=== PATIENT | female | born 1960 | race Caucasian/White ===

== ENCOUNTER 2017-05-09 19:02 | Emergency (ER) | payer MEDICARE, MEDICAID | END 2017-05-09 20:00 | disposition left against medical advice (07) | LOC: UCEAST 19:02 | DX: R53.1 Weakness (principal); Z53.21 Procedure and treatment not carried out due to patient leaving prior to being seen by health care provider ==

== ENCOUNTER 2017-05-12 08:46 | Emergency (ER) | payer MEDICARE, MEDICAID ==
--- NOTE | 2017-05-12 09:10 | UC ---
Lower Extremity/Ankle HPI - HPI Summary HPI Summary: Pt is nonverbal, normally fully independent with ambulation. 3 nights ago there was a fire drill and pt was seen twisting R foot on a ledge in the sidewalk with some twisting/scraping. Has been walking with a slight limp, today does not want to bear weight at all. Seems more agitated than normal, biting her hand more than normal (which is a sign of pain). - History of Current Complaint Chief Complaint: UCLowerExtremity Stated Complaint: FOOT INJURY Time Seen by Provider: 05/12/17 08:53 Hx Obtained From: Family/Computer Technology Instructor ?: No Onset/Duration: Sudden Onset Severity Initially: Mild Severity Currently: Moderate Aggravating Factor(s): Standing, Ambulation Alleviating Factor(s): Rest Able to Bear Weight: Yes - Allergies/Home Medications Allergies/Adverse Reactions: Allergies Allergy/AdvReac Type Severity Reaction Status Date / Time Fexofenadine [From Gina] Allergy Unknown Unknown Verified 11/14/12 10:36 Reaction Details Phenylalanine Allergy Unknown Unknown Verified 11/14/12 10:36 Reaction Details Pseudoephedrine Allergy Unknown Unknown Verified 11/14/12 10:36 [From Actifed] Reaction Details Triprolidine [From Actifed] Allergy Unknown Unknown Verified 11/14/12 10:36 Reaction Details laundry detergent Allergy Unknown Uncoded 11/14/12 10:36 Reaction Details PMH/Surg Hx/FS Hx/Imm Hx - Additional Past Medical History Additional PMH: PKU, profound MR, self-injurious behavior - Surgical History Surgical History: Yes Surgery Procedure, Year, and Place: Vaginal D&C 03/07/2012 - Family History Known Family History: Positive: Unknown - Social History Occupation: Disabled Lives: Assisted Living Alcohol Use: None Substance Use Type: None Smoking Status (MU): Never Smoked Tobacco - Immunization History Most Recent Tetanus Shot: 12/14/08 Review of Systems Constitutional: Negative Skin: Negative Eyes: Negative ENT: Negative Respiratory: Negative Cardiovascular: Negative Gastrointestinal: Negative Genitourinary: Negative Motor: Negative Neurovascular: Negative Musculoskeletal: Arthralgia - R foot Neurological: Negative Psychological: Negative All Other Systems Reviewed And Are Negative: Yes Physical Exam Triage Information Reviewed: Yes Appearance: Well-Nourished Vital Signs: Initial Vital Signs Temp 98 F 05/12/17 08:49 Pulse 77 07/23/17 08:49 Resp 22 05/12/17 08:49 Pulse Ox 100 05/12/17 08:49 Vital Signs Reviewed: Yes Eyes: Positive: Conjunctiva Clear ENT: Positive: Other: - bilat cerumen impaction. Negative: Nasal congestion, Tonsillar swelling Dental Exam: Normal Neck exam: Normal Neck: Positive: Supple, Nontender, No Lymphadenopathy Respiratory Exam: Normal Respiratory: Positive: Chest non-tender, Lungs clear, Normal breath sounds, No respiratory distress, No accessory muscle use Cardiovascular Exam: Normal Cardiovascular: Positive: RRR, No Murmur Musculoskeletal Exam: Other - minimal bruising, abrasion near R distal first MT Musculoskeletal: Positive: ROM Intact Neurological Exam: Normal Neurological: Positive: Alert Psychological Exam: Normal Lower Extremity Course/Dx - Differential Dx/Diagnosis Provider Diagnoses: R foot contusion Discharge - Discharge Plan Condition: Stable Disposition: HOME Patient Education Materials: Foot Sprain (ED), Contusion in Adults (ED) Referrals: Giuliana Mera PA [Primary Care Provider] - Additional Instructions: Radha'maria t minor injury did not result in any broken bones. Most sprains, strains , and contusions simply heal with time. She can continue to bear weight as tolerated, and I expect her to be back to normal in a week or so. If she has persistent or worsening pain, please see her primary care provider.
--- NOTE | 2017-05-12 09:37 | RAD ---
INDICATION: Right foot injury. TECHNIQUE: 3 views of the right foot were obtained. FINDINGS: There appears to be a small laceration along the medial aspect of the great toe at the level of the interphalangeal joint. No fracture or radiopaque foreign body is seen. Joint spaces appear maintained. IMPRESSION: SOFT TISSUE INJURY, NO FRACTURE IS SEEN.
== END 2017-05-12 09:49 | disposition home or self-care (01) ==
LOC: UCEAST 08:46
DX: S90.31XA Contusion of right foot, initial encounter (principal); X50.1XXA Overexertion from prolonged static or awkward postures, initial encounter; Z88.8 Allergy status to other drugs, medicaments and biological substances; H61.23 Impacted cerumen, bilateral
CPT/HCPCS: 99211; G0463

== ENCOUNTER 2020-01-13 06:42 | Day surgery (SDC) | payer MEDICARE, MEDICAID ==
[~2020-01-13 06:42] MED LIST: Buffered Lidocaine 1% SYRIN* 1 ML/SYRINGE INTRADERM ONE; Lactated Ringers 1000 ML Bag* 1,000 ML IV SCH
[2020-01-13] MEDS ORDERED: Buffered Lidocaine 1% SYRIN* 1 ML/SYRINGE INTRADERM ONE (07:01)
[2020-01-13] MEDS ORDERED: Midazolam* 1 MG/ML 2 ML VIAL (2 MG) ONE (08:03)
[2020-01-13] MEDS ORDERED: Propofol* 10 MG/ML 20 ML BTL ONE (08:04)
[2020-01-13] MEDS ORDERED: KETAMINE HCL* 50 MG/ML 10 ML VIAL ONE (08:18)
[2020-01-13] MEDS ORDERED: Ondansetron INJ* 2 MG/ML VIAL ONE (08:36)
[2020-01-13] MEDS ORDERED: Metoclopramide IV* 5 MG/ML 2 ML VIAL ONE (08:36)
[2020-01-13] MEDS ORDERED: Glycopyrrolate IV* 0.2 MG/ML 1 ML VIAL ONE (08:41)
[2020-01-13] MEDS ORDERED: Naloxone* 0.4 MG/ML 1 ML VIAL IV PRN (09:03)
[2020-01-13 10:25] VITALS: BP 113/65
--- NOTE | 2020-01-13 15:05 | PRO ---
CC: Dr. Kale Mckeon* DATE OF PROCEDURE: 01/13/2020. PROCEDURE PERFORMED: EGD with biopsy. REFERRING PHYSICIAN: Dr. Kale Mckeon. INDICATION: Patient with vomiting and weight loss. The patient has a severe intellectual disability as well as behavioral issues. She is nonverbal. MEDICATIONS GIVEN: By Anesthesia. DESCRIPTION OF PROCEDURE: Full disclosure of risks were reviewed with the patient as detailed on the consent form. The patient was placed in the left lateral decubitus position and monitored with continuous pulse oximetry, capnography, interval blood pressure monitoring, and direct observation. A bite block was placed between the patient's teeth. An adult gastroscope was then inserted into the patient's mouth and advanced down the esophagus, into the stomach and into the distal duodenum. Findings and interventions are described below. FINDINGS: Esophagus was a tubular structure with tortuosity in the distal portion. There almost appeared to be an acute turn in the distal esophagus directly above the GE junction. The scope was able to easily advanced through this area so there was no stricture present. At the area of the GE junction, there was food material seen. There also appeared to be several small erosions or ulcers in this location. The scope was advanced through the GE junction at 33 cm into a large hiatal hernia. This hiatal hernia contained a large bezoar. I was able to advance through the hiatal hernia into the intra-abdominal portion of the abdomen. The top of the gastric folds measured at 39 cm. In the intra-abdominal portion of the stomach, there were decreased rugae and diffuse mild erythema. There was a cobblestone edematous appearance to the mucosa. No ulcers. Biopsies obtained from the antrum for CLOtest. Biopsy also obtained from the antrum and body for histologic evaluation. The scope was then advanced into the duodenum to at least the third portion. Duodenal mucosa was normal in appearance. Biopsies were obtained. The scope was then withdrawn back to the hiatal hernia to further evaluate the gastric bezoar. I was able to move the scope underneath the gastric bezoar which confirms that it was a very large conglomeration of debris in a concretion. I was unable to advance the bezoar forward using the tip of the scope. I used a snare over a period of five minutes to attempt to break the bezoar down. The snare was unable to cut through most passes. The material in the bezoar seemed very stiff. Appearance is suggestive of perhaps a mixture of hair and cellulose, possible foreign object like a sponge, although it was not clear in appearance what exactly it contained. The scope was then withdrawn from the patient. The patient tolerated the procedure well and was recovered in the GI recovery area IMPRESSION: 1. Complete upper endoscopy to the distal duodenum. 2. Inflammation in the form of erosion verses small ulcers in the lower esophagus. 3. Large hiatal hernia containing a large gastric bezoar. Unable to disrupt this bezoar with endoscopic techniques today. Possible that this contains hair. 4. Mild to moderate gastric erythema. FOLLOW-UP: 1. Continue PPI twice daily. 2. Recommend attempt at chemical dissolution with coca-cola 3 liters in 12 hours. Would also recommend Reglan 10 mg t.i.d. at bedtime as well as Viokase t.i.d. for one week. The patient's care team will then contact the office with an update and clinical symptoms. If the patient's symptoms are not fully resolved after one week, then we will discuss repeating an endoscopy to see if the bezoar is any smaller and can be able to be managed endoscopically. Another alternatively unfortunately would be surgical resection. Thank you very much for this referral. [id number]/[facility] #: [id number] ROBERTO
== END 2020-01-13 10:00 | disposition home or self-care (01) ==
LOC: OR 06:42
PROVIDERS: ATTEND Internal Medicine Gastroenterology
DX: R11.2 Nausea with vomiting, unspecified (principal); R63.4 Abnormal weight loss; K29.50 Unspecified chronic gastritis without bleeding; K44.9 Diaphragmatic hernia without obstruction or gangrene; T18.198A Other foreign object in esophagus causing other injury, initial encounter; K20.9 Esophagitis, unspecified; F73 Profound intellectual disabilities
CPT/HCPCS: 87077; 88305; 88342; J2250; J2405; J2704; J2765

== ENCOUNTER 2020-02-26 10:45 | Inpatient (IN) ==
[2020-02-26] MEDS ORDERED: Ondansetron 4 mg VIAL 2 MG/ML 2 ml VIAL IV ONE (11:10)
[2020-02-26] MEDS ORDERED: NS 0.9% 1000 ml BAG 1,000 ML IV ONE (11:10)
[2020-02-26 11:47] LABS: ABS Lymphocytes 0.4 10^3/ul (1.0-4.8); ABS Monocytes 0.2 10^3/ul (0-0.8); Hematocrit 35 % (35-47); Hemoglobin 11.6 g/dL (12.0-16.0); Lymphocyte % 4.9 %; Mean Corpuscular HGB Conc 34 g/dL (31-36); Mean Corpuscular Hemoglobin 31 pg (27-31); Mean Corpuscular Volume 91 fL (80-97); Mean Platelet Volume 8.3 fL (7.4-10.4); Nucleated Red Blood Cells % 0.1; Platelet Count 400 10^3/uL (150-450); Red Blood Count 3.77 10^6 /uL (3.70-4.87); Red Cell Distribution Width 13 % (10-15); White Blood Count 9.1 10^3/uL (3.5-10.8)
[2020-02-26 11:55] LABS: Albumin 3.6 g/dL (3.2-5.2); BUN/Creatinine Ratio 20.6 (8-20); C Reactive Protein 204.7 mg/L (<8.01); Calcium 10.8 mg/dL (8.6-10.3); EGFR African American 46.4 (>60); EGFR Non-African American 38.3 (>60); Globulin 3.5 g/dL (2-4); Potassium 4.7 mmol/L (3.5-5.0); Total Bilirubin 0.8 mg/dL (0.2-1.0); Total Protein 7.1 g/dL (6.4-8.9)
[2020-02-26] MEDS ORDERED: LORazepam 2 mg VIAL 1 ml IV PUSH ONE ×2 (11:56→13:49)
[2020-02-26] MEDS ORDERED: Lorazepam PYXIS KEY PRN ×2 (11:56→13:49)
[2020-02-26] MEDS ORDERED: Piperacillin/Tazobac ADVAN(*) 3.375 GM in NS 0.9% 100 ml BAG 100 ML IVPB ONE ×2 (13:25→14:44)
[2020-02-26] MEDS ORDERED: Zosyn per Pharmacy NOTE FOLLOW UP SCH (15:00)
[2020-02-26] MEDS ORDERED: ZOSYN 3.375 GM Q8H per EXTENDED INFUSION IV SCH ×2 (19:30→22:00)
[2020-02-26] MEDS: D5NS 0.9% 1000 ml BAG 1,000 ML IV SCH (21:23)
[2020-02-26] MEDS ORDERED: ZOSYN 3.375 GM Q6H IV SCH (22:00)
[2020-02-26] MEDS: Diazepam INJ CARPUJECT 5 MG/ML IM PRN (22:42)
[2020-02-27] MEDS ORDERED: CLINDAMYCIN IM ONE (00:30)
[2020-02-27] MEDS ORDERED: cefTRIAXone VIAL 1,000 MG VIAL IM ONE (00:30)
[2020-02-27] MEDS: ZOSYN 3.375 GM Q8H per EXTENDED INFUSION IV SCH ×3 (01:06→15:36)
[2020-02-27] MEDS ORDERED: LORazepam 2 mg VIAL 1 ml ONE (01:14)
[2020-02-27] MEDS ORDERED: Lorazepam PYXIS KEY ONE (01:14)
[2020-02-27] MEDS ORDERED: Succinylcholine 200 mg VIAL 20 mg/ml 10 ml VIAL (200 mg) ONE ×2 (01:23→01:38)
[2020-02-27] MEDS ORDERED: Midazolam 10 mg/10 ml VIAL 1 mg/ml 10 ml VIAL (10 mg) ONE (01:38)
[2020-02-27] MEDS ORDERED: Etomidate 40 mg/20 ml (2 MG/ML) 20 ml VIAL (40 mg) ONE (01:38)
[2020-02-27] MEDS ORDERED: Propofol 10 mg/ml 100 ML BTL 100 ML ONE (01:40)
[2020-02-27] MEDS: Midazolam IV for DRIP 100 MG in NS 0.9% 100 ml BAG 80 ML IV SCH (02:46)
[2020-02-27] MEDS ORDERED: Propofol 10 mg/ml 100 ML BTL 100 ML IV SCH (03:00)
[2020-02-27 05:27] LABS: Urine Appearance Cloudy; Urine Bilirubin Negative (Negative); Urine Blood Negative (Negative); Urine Color Amber; Urine Glucose Negative (Negative); Urine Ketones 1+ (Negative); Urine Nitrite Negative (Negative); Urine Protein Negative (Negative); Urine Urobilinogen Negative (Negative)
[2020-02-27] MEDS ORDERED: LIDOCAINE ONE (05:35)
[2020-02-27 05:38] LABS: Hematocrit 27 % (35-47); Hemoglobin 9.2 g/dL (12.0-16.0); Mean Corpuscular HGB Conc 34 g/dL (31-36); Mean Corpuscular Hemoglobin 31 pg (27-31); Mean Corpuscular Volume 91 fL (80-97); Mean Platelet Volume 7.5 fL (7.4-10.4); Platelet Count 332 10^3/uL (150-450); Red Blood Count 2.94 10^6 /uL (3.70-4.87); Red Cell Distribution Width 13 % (10-15); White Blood Count 12.7 10^3/uL (3.5-10.8)
[2020-02-27 06:11] LABS: BUN/Creatinine Ratio 22.1 (8-20); Calcium 9.6 mg/dL (8.6-10.3); EGFR African American 44.9 (>60); EGFR Non-African American 37.1 (>60); Potassium 4.2 mmol/L (3.5-5.0)
[2020-02-27] MEDS ORDERED: NS 0.9% 1000 ml BAG 1,000 ML IV ONE (06:12)
[2020-02-27 06:21] LABS: ABS Lymphocytes 0.3 10^3/ul (1.0-4.8); ABS Monocytes 0.2 10^3/ul (0-0.8); Eosinophil % 0.1 %
[2020-02-27] MEDS: Heparin 5000 UNITS/ML VIAL(*) 1 ml vial SUBCUT SCH ×3 (06:22→22:04)
[2020-02-27] MEDS: fentaNYL 100 mcg/2 ml 50 MCG/ML VIAL IV SLOW PU ONE (06:22)
[2020-02-27] MEDS: Chlorhexidine MOUTHWASH 0.12% 15 ML UDC TOPICAL SCH ×5 (06:23→22:04)
[2020-02-27] MEDS ORDERED: NS 0.9% w/ 40 Meq KCL 1000 ML 1,000 ML IV SCH (07:00)
[2020-02-27] MEDS: Propofol 10 mg/ml 100 ML BTL 100 ML IV SCH ×2 (07:40→15:28)
[2020-02-27] MEDS: Pantoprazole VIAL 40 MG VIAL IV SCH (08:15)
[2020-02-27] MEDS: NS 0.9% w/ 40 Meq KCL 1000 ML 1,000 ML IV SCH ×3 (13:18→22:21)
[2020-02-28] MEDS: ZOSYN 3.375 GM Q8H per EXTENDED INFUSION IV SCH ×3 (01:23→16:29)
[2020-02-28] MEDS: Propofol 10 mg/ml 100 ML BTL 100 ML IV SCH ×2 (01:26→13:14)
[2020-02-28] MEDS: Chlorhexidine MOUTHWASH 0.12% 15 ML UDC TOPICAL SCH ×6 (02:02→21:36)
[2020-02-28] MEDS ORDERED: NS 0.9% 1000 ML/HR X 1 BAG (TOTAL 1000 ML) IV ONE (04:00)
[2020-02-28] MEDS ORDERED: fentaNYL 100 mcg/2 ml 50 MCG/ML VIAL ONE (04:49)
[2020-02-28] MEDS: Heparin 5000 UNITS/ML VIAL(*) 1 ml vial SUBCUT SCH ×3 (05:24→21:36)
[2020-02-28 05:30] LABS: ABS Eosinophils 0.2 10^3/ul (0-0.6); ABS Lymphocytes 0.3 10^3/ul (1.0-4.8); ABS Monocytes 0.1 10^3/ul (0-0.8); Eosinophil % 1.8 %; Hematocrit 23 % (35-47); Hemoglobin 7.5 g/dL (12.0-16.0); Lymphocyte % 3.1 %; Mean Corpuscular HGB Conc 33 g/dL (31-36); Mean Corpuscular Hemoglobin 31 pg (27-31); Mean Corpuscular Volume 94 fL (80-97); Mean Platelet Volume 7.5 fL (7.4-10.4); Platelet Count 293 10^3/uL (150-450); Red Blood Count 2.39 10^6 /uL (3.70-4.87); Red Cell Distribution Width 14 % (10-15); White Blood Count 10.7 10^3/uL (3.5-10.8)
[2020-02-28 05:49] LABS: BUN/Creatinine Ratio 20.7 (8-20); Calcium 8.3 mg/dL (8.6-10.3); EGFR African American 46.7 (>60); EGFR Non-African American 38.6 (>60)
[2020-02-28] MEDS: NS 0.9% w/ 40 Meq KCL 1000 ML 1,000 ML IV SCH (05:49)
[2020-02-28 05:55] LABS: Potassium 5.1 mmol/L (3.5-5.0)
[2020-02-28] MEDS ORDERED: Lactated Ringers 1000 ml BAG 1,000 ML IV SCH (07:00)
[2020-02-28] MEDS: Pantoprazole VIAL 40 MG VIAL IV SCH (07:20)
[2020-02-28] MEDS: Lactated Ringers 1000 ml BAG 1,000 ML IV SCH ×2 (08:08→15:44)
[2020-02-28 10:18] LABS: Hematocrit 22 % (35-47); Hemoglobin 7.4 g/dL (12.0-16.0)
[2020-02-28 13:14] LABS: Magnesium 1.9 mg/dL (1.9-2.7); Phosphorus 2.6 mg/dL (2.5-5.0)
[2020-02-28] MEDS: Midazolam IV for DRIP 100 MG in NS 0.9% 100 ml BAG 80 ML IV SCH (16:29)
[2020-02-29] MEDS ORDERED: Lactated Ringers 500 ml BAG 500 ML IV ONE
[2020-02-29] MEDS: Lactated Ringers 1000 ml BAG 1,000 ML IV SCH (00:20)
[2020-02-29] MEDS: ZOSYN 3.375 GM Q8H per EXTENDED INFUSION IV SCH ×3 (00:27→15:59)
[2020-02-29] MEDS: Chlorhexidine MOUTHWASH 0.12% 15 ML UDC TOPICAL SCH ×6 (01:55→21:39)
[2020-02-29 04:17] LABS: ABS Eosinophils 0.2 10^3/ul (0-0.6); ABS Lymphocytes 0.4 10^3/ul (1.0-4.8); ABS Monocytes 0.2 10^3/ul (0-0.8); Eosinophil % 2.4 %; Hematocrit 22 % (35-47); Hemoglobin 7.7 g/dL (12.0-16.0); Lymphocyte % 3.5 %; Mean Corpuscular HGB Conc 35 g/dL (31-36); Mean Corpuscular Hemoglobin 33 pg (27-31); Mean Corpuscular Volume 94 fL (80-97); Platelet Count 290 10^3/uL (150-450); Red Blood Count 2.37 10^6 /uL (3.70-4.87); Red Cell Distribution Width 14 % (10-15); White Blood Count 10.2 10^3/uL (3.5-10.8)
[2020-02-29 04:26] LABS: Activated Partial Thrombo Time 27.3 seconds (26.0-38.0); INR 1.19 (0.82-1.09)
[2020-02-29 04:34] LABS: BUN/Creatinine Ratio 21.2 (8-20); Calcium 8.7 mg/dL (8.6-10.3); EGFR African American 56.9 (>60); Magnesium 1.8 mg/dL (1.9-2.7); Phosphorus 3.1 mg/dL (2.5-5.0)
[2020-02-29] MEDS: Heparin 5000 UNITS/ML VIAL(*) 1 ml vial SUBCUT SCH ×3 (05:03→21:39)
[2020-02-29] MEDS: Propofol 10 mg/ml 100 ML BTL 100 ML IV SCH ×2 (05:03→17:02)
[2020-02-29] MEDS: Pantoprazole VIAL 40 MG VIAL IV SCH (07:10)
[2020-02-29] MEDS: Diazepam INJ CARPUJECT 5 MG/ML IM PRN (07:20)
[2020-02-29] MEDS ORDERED: Diazepam INJ CARPUJECT 5 MG/ML IM ONE (08:04)
[2020-02-29] MEDS ORDERED: Magnesium Sulfate 2 gm BAG 2 GM/50 ML BAG IVPB ONE (08:06)
[2020-02-29] MEDS: D5W 1/2 NS 1000 ml BAG 1,000 ML IV SCH ×2 (08:37→23:22)
[2020-02-29] MEDS ORDERED: Chlorhexidine MOUTHWASH 0.12% 15 ML UDC ONE (21:35)
[2020-03-01] MEDS: ZOSYN 3.375 GM Q8H per EXTENDED INFUSION IV SCH ×3 (00:55→17:08)
[2020-03-01] MEDS: Chlorhexidine MOUTHWASH 0.12% 15 ML UDC TOPICAL SCH ×6 (02:06→22:33)
[2020-03-01] MEDS: Propofol 10 mg/ml 100 ML BTL 100 ML IV SCH ×2 (03:44→17:45)
[2020-03-01 04:03] LABS: ABS Basophils 0.1 10^3/ul (0-0.2); ABS Eosinophils 0.2 10^3/ul (0-0.6); ABS Lymphocytes 0.4 10^3/ul (1.0-4.8); ABS Monocytes 0.3 10^3/ul (0-0.8); Eosinophil % 1.8 %; Hematocrit 20 % (35-47); Hemoglobin 6.9 g/dL (12.0-16.0); Lymphocyte % 4.4 %; Mean Corpuscular HGB Conc 34 g/dL (31-36); Mean Corpuscular Hemoglobin 31 pg (27-31); Mean Corpuscular Volume 92 fL (80-97); Mean Platelet Volume 7.9 fL (7.4-10.4); Platelet Count 271 10^3/uL (150-450); Red Blood Count 2.21 10^6 /uL (3.70-4.87); Red Cell Distribution Width 14 % (10-15); White Blood Count 8.5 10^3/uL (3.5-10.8)
[2020-03-01 04:17] LABS: BUN/Creatinine Ratio 17.6 (8-20); EGFR African American 63.1 (>60); EGFR Non-African American 52.1 (>60); Magnesium 1.9 mg/dL (1.9-2.7); Phosphorus 2.9 mg/dL (2.5-5.0); Potassium 3.4 mmol/L (3.5-5.0)
[2020-03-01] MEDS ORDERED: KCL 20 MEQ/100 ML IVPREMIX 20 MEQ/100 ML BAG IV ONE (04:23)
[2020-03-01] MEDS: Heparin 5000 UNITS/ML VIAL(*) 1 ml vial SUBCUT SCH ×3 (06:04→22:34)
[2020-03-01 08:41] LABS: Albumin 2.2 g/dL (3.2-5.2); Globulin 2.1 g/dL (2-4); Indirect Bilirubin 0.3 mg/dL (0.3-1.0); Total Bilirubin 0.5 mg/dL (0.2-1.0); Total Protein 4.3 g/dL (6.4-8.9)
[2020-03-01] MEDS: Pantoprazole VIAL 40 MG VIAL IV SCH (09:49)
[2020-03-01] MEDS: fentaNYL 100 mcg/2 ml 50 MCG/ML VIAL IV SLOW PU PRN ×2 (11:22→14:28)
[2020-03-01] MEDS ORDERED: Furosemide 20 mg/2 ml IV VIAL IV SLOW PU ONE (11:28)
[2020-03-01] MEDS: D5W 1/2 NS 1000 ml BAG 1,000 ML IV SCH (12:42)
[2020-03-02] MEDS: D5W 1/2 NS 1000 ml BAG 1,000 ML IV SCH ×2 (01:25→13:17)
[2020-03-02] MEDS: Propofol 10 mg/ml 100 ML BTL 100 ML IV SCH ×2 (01:25→17:56)
[2020-03-02] MEDS: Chlorhexidine MOUTHWASH 0.12% 15 ML UDC TOPICAL SCH ×6 (01:26→21:48)
[2020-03-02] MEDS: ZOSYN 3.375 GM Q8H per EXTENDED INFUSION IV SCH ×3 (01:26→16:57)
[2020-03-02 04:57] LABS: Hematocrit 20 % (35-47); Hemoglobin 6.7 g/dL (12.0-16.0); Mean Corpuscular HGB Conc 34 g/dL (31-36); Mean Corpuscular Hemoglobin 31 pg (27-31); Mean Corpuscular Volume 92 fL (80-97); Platelet Count 246 10^3/uL (150-450); Red Blood Count 2.18 10^6 /uL (3.70-4.87); Red Cell Distribution Width 14 % (10-15); White Blood Count 5.9 10^3/uL (3.5-10.8)
[2020-03-02 05:07] LABS: BUN/Creatinine Ratio 15.3 (8-20); Calcium 7.8 mg/dL (8.6-10.3); EGFR African American 70.5 (>60); EGFR Non-African American 58.3 (>60); Potassium 3.2 mmol/L (3.5-5.0)
[2020-03-02] MEDS: Heparin 5000 UNITS/ML VIAL(*) 1 ml vial SUBCUT SCH ×3 (05:57→21:49)
[2020-03-02] MEDS: Pantoprazole VIAL 40 MG VIAL IV SCH (08:08)
[2020-03-02 08:11] LABS: ABS Basophils 0.1 10^3/ul (0-0.2); ABS Eosinophils 0.2 10^3/ul (0-0.6); ABS Lymphocytes 0.5 10^3/ul (1.0-4.8); ABS Monocytes 0.3 10^3/ul (0-0.8); Eosinophil % 3.7 %
[2020-03-02] MEDS ORDERED: Furosemide 40 mg/4 ml IV VIAL IV SLOW PU ONE (11:58)
[2020-03-02] MEDS ORDERED: Albumin Human 25% 25 GM/100 ML BTL IV ONE (13:00)
[2020-03-02] MEDS: KCL 20 MEQ/100 ML IVPREMIX 20 MEQ/100 ML BAG IV SCH ×2 (13:15→15:37)
[2020-03-03] MEDS: ZOSYN 3.375 GM Q8H per EXTENDED INFUSION IV SCH ×3 (00:28→17:02)
[2020-03-03] MEDS: Chlorhexidine MOUTHWASH 0.12% 15 ML UDC TOPICAL SCH ×6 (01:41→21:03)
[2020-03-03] MEDS: Heparin 5000 UNITS/ML VIAL(*) 1 ml vial SUBCUT SCH ×3 (04:56→21:03)
[2020-03-03 05:06] LABS: Hematocrit 21 % (35-47); Hemoglobin 7.2 g/dL (12.0-16.0); Mean Corpuscular HGB Conc 34 g/dL (31-36); Mean Corpuscular Hemoglobin 31 pg (27-31); Mean Corpuscular Volume 91 fL (80-97); Mean Platelet Volume 7.6 fL (7.4-10.4); Platelet Count 308 10^3/uL (150-450); Red Blood Count 2.34 10^6 /uL (3.70-4.87); Red Cell Distribution Width 13 % (10-15); White Blood Count 6.5 10^3/uL (3.5-10.8)
[2020-03-03 05:16] LABS: BUN/Creatinine Ratio 14.6 (8-20); Calcium 7.9 mg/dL (8.6-10.3); EGFR African American 72.2 (>60); EGFR Non-African American 59.7 (>60); Potassium 3.1 mmol/L (3.5-5.0)
[2020-03-03 05:29] LABS: ABS Eosinophils 0.2 10^3/ul (0-0.6); ABS Lymphocytes 0.9 10^3/ul (1.0-4.8); ABS Monocytes 0.3 10^3/ul (0-0.8); Eosinophil % 3.7 %; Lymphocyte % 14.1 %
[2020-03-03] MEDS: Propofol 10 mg/ml 100 ML BTL 100 ML IV SCH ×2 (05:36→17:02)
[2020-03-03] MEDS: KCL 20 MEQ/100 ML IVPREMIX 20 MEQ/100 ML BAG IV SCH ×2 (06:22→08:36)
[2020-03-03] MEDS: Pantoprazole VIAL 40 MG VIAL IV SCH (08:20)
[2020-03-03] MEDS: fentaNYL 100 mcg/2 ml 50 MCG/ML VIAL IV SLOW PU PRN (19:32)
[2020-03-04] MEDS: ZOSYN 3.375 GM Q8H per EXTENDED INFUSION IV SCH ×3 (00:48→17:05)
[2020-03-04] MEDS ORDERED: Propofol 10 MG/ML 20 ML BTL ONE (01:42)
[2020-03-04] MEDS: fentaNYL 100 mcg/2 ml 50 MCG/ML VIAL IV SLOW PU PRN (01:46)
[2020-03-04] MEDS: Chlorhexidine MOUTHWASH 0.12% 15 ML UDC TOPICAL SCH ×5 (01:46→20:15)
[2020-03-04] MEDS: Heparin 5000 UNITS/ML VIAL(*) 1 ml vial SUBCUT SCH ×3 (05:28→22:23)
[2020-03-04 05:52] LABS: Hematocrit 21 % (35-47); Hemoglobin 7.1 g/dL (12.0-16.0); Mean Corpuscular HGB Conc 34 g/dL (31-36); Mean Corpuscular Hemoglobin 31 pg (27-31); Mean Corpuscular Volume 90 fL (80-97); Mean Platelet Volume 7.5 fL (7.4-10.4); Platelet Count 330 10^3/uL (150-450); Red Blood Count 2.29 10^6 /uL (3.70-4.87); Red Cell Distribution Width 13 % (10-15); White Blood Count 7.7 10^3/uL (3.5-10.8)
[2020-03-04 06:07] LABS: Albumin 2.3 g/dL (3.2-5.2); BUN/Creatinine Ratio 19.1 (8-20); EGFR African American 78.8 (>60); EGFR Non-African American 65.1 (>60); Globulin 2.4 g/dL (2-4); Magnesium 1.5 mg/dL (1.9-2.7); Phosphorus 2.2 mg/dL (2.5-5.0); Potassium 3.3 mmol/L (3.5-5.0); Total Bilirubin 0.9 mg/dL (0.2-1.0); Total Protein 4.7 g/dL (6.4-8.9)
[2020-03-04] MEDS: D5W 1/2 NS 1000 ml BAG 1,000 ML IV SCH (07:32)
[2020-03-04] MEDS ORDERED: Potassium Phosphate IV 15 MMOLE in NS 0.9% 250 ml 250 ML IVPB ONE (08:52)
[2020-03-04] MEDS ORDERED: Magnesium Sulfate IV 3 GM in NS 0.9% 100 ml BAG 100 ML IVPB ONE (08:53)
[2020-03-04 09:12] LABS: ABS Basophils 0.1 10^3/ul (0-0.2); ABS Eosinophils 0.3 10^3/ul (0-0.6); ABS Lymphocytes 0.7 10^3/ul (1.0-4.8); ABS Monocytes 0.4 10^3/ul (0-0.8); Eosinophil % 3.8 %; Lymphocyte % 9.4 %
[2020-03-04] MEDS: Pantoprazole VIAL 40 MG VIAL IV SCH (09:35)
[2020-03-04] MEDS: Propofol 10 mg/ml 100 ML BTL 100 ML IV SCH (23:17)
[2020-03-05] MEDS: ZOSYN 3.375 GM Q8H per EXTENDED INFUSION IV SCH ×3 (01:18→17:03)
[2020-03-05] MEDS: Chlorhexidine MOUTHWASH 0.12% 15 ML UDC TOPICAL SCH ×7 (01:18→20:44)
[2020-03-05 05:01] LABS: Hematocrit 22 % (35-47); Hemoglobin 7.3 g/dL (12.0-16.0); Mean Corpuscular HGB Conc 34 g/dL (31-36); Mean Corpuscular Hemoglobin 31 pg (27-31); Mean Corpuscular Volume 91 fL (80-97); Mean Platelet Volume 7.7 fL (7.4-10.4); Platelet Count 339 10^3/uL (150-450); Red Blood Count 2.39 10^6 /uL (3.70-4.87); Red Cell Distribution Width 13 % (10-15); White Blood Count 8.4 10^3/uL (3.5-10.8)
[2020-03-05 05:10] LABS: BUN/Creatinine Ratio 19.2 (8-20); Calcium 7.9 mg/dL (8.6-10.3); EGFR African American 91.8 (>60); EGFR Non-African American 75.9 (>60); Phosphorus 2.9 mg/dL (2.5-5.0); Potassium 3.5 mmol/L (3.5-5.0)
[2020-03-05 05:32] LABS: ABS Basophils 0.1 10^3/ul (0-0.2); ABS Eosinophils 0.3 10^3/ul (0-0.6); ABS Lymphocytes 0.8 10^3/ul (1.0-4.8); ABS Monocytes 0.4 10^3/ul (0-0.8); Eosinophil % 3.1 %; Lymphocyte % 9.7 %; Nucleated Red Blood Cells % 0.1
[2020-03-05] MEDS: Heparin 5000 UNITS/ML VIAL(*) 1 ml vial SUBCUT SCH ×3 (05:35→22:30)
[2020-03-05] MEDS: Pantoprazole VIAL 40 MG VIAL IV SCH (08:28)
[2020-03-05] MEDS: Propofol 10 mg/ml 100 ML BTL 100 ML IV SCH ×2 (08:28→19:59)
[2020-03-06] MEDS: ZOSYN 3.375 GM Q8H per EXTENDED INFUSION IV SCH ×3 (00:21→17:02)
[2020-03-06] MEDS: Chlorhexidine MOUTHWASH 0.12% 15 ML UDC TOPICAL SCH ×6 (00:22→21:57)
[2020-03-06] MEDS: D5W 1/2 NS 1000 ml BAG 1,000 ML IV SCH (00:28)
[2020-03-06 04:19] LABS: Hematocrit 19 % (35-47); Hemoglobin 6.5 g/dL (12.0-16.0); Mean Corpuscular HGB Conc 34 g/dL (31-36); Mean Corpuscular Hemoglobin 30 pg (27-31); Mean Corpuscular Volume 90 fL (80-97); Mean Platelet Volume 7.2 fL (7.4-10.4); Platelet Count 299 10^3/uL (150-450); Red Blood Count 2.14 10^6 /uL (3.70-4.87); Red Cell Distribution Width 14 % (10-15); White Blood Count 7.6 10^3/uL (3.5-10.8)
[2020-03-06 04:38] LABS: BUN/Creatinine Ratio 16.9 (8-20); Calcium 7.7 mg/dL (8.6-10.3); EGFR African American 93.2 (>60)
[2020-03-06] MEDS: Propofol 10 mg/ml 100 ML BTL 100 ML IV SCH ×2 (05:07→15:32)
[2020-03-06] MEDS: Heparin 5000 UNITS/ML VIAL(*) 1 ml vial SUBCUT SCH ×3 (05:11→21:57)
[2020-03-06] MEDS: Pantoprazole VIAL 40 MG VIAL IV SCH (09:44)
[2020-03-06] MEDS: KCL 20 MEQ/100 ML IVPREMIX 20 MEQ/100 ML BAG IV SCH ×2 (15:32→17:59)
[2020-03-06] MEDS ORDERED: LIPID EMULSION CENTR SCH (17:00)
[2020-03-06] MEDS ORDERED: WATER CENTR SCH (17:00)
[2020-03-06] MEDS ORDERED: DEXTROSE CENTR SCH (17:00)
[2020-03-06] MEDS ORDERED: TPN CENTR SCH (17:00)
[2020-03-06] MEDS ORDERED: [UNRECOGNIZED DRUG - OTHER] CENTR SCH (17:00)
[2020-03-06 19:21] LABS: HDL Cholesterol 12.8 mg/dL
[2020-03-07] MEDS: ZOSYN 3.375 GM Q8H per EXTENDED INFUSION IV SCH ×3 (01:12→17:30)
[2020-03-07] MEDS: Chlorhexidine MOUTHWASH 0.12% 15 ML UDC TOPICAL SCH ×3 (01:16→11:41)
[2020-03-07 04:07] LABS: Hematocrit 20 % (35-47); Mean Corpuscular HGB Conc 35 g/dL (31-36); Mean Corpuscular Hemoglobin 32 pg (27-31); Mean Corpuscular Volume 91 fL (80-97); Mean Platelet Volume 7.8 fL (7.4-10.4); Platelet Count 335 10^3/uL (150-450); Red Blood Count 2.23 10^6 /uL (3.70-4.87); Red Cell Distribution Width 13 % (10-15); White Blood Count 8.6 10^3/uL (3.5-10.8)
[2020-03-07 04:22] LABS: BUN/Creatinine Ratio 11.7 (8-20); EGFR African American 93.2 (>60); Potassium 3.9 mmol/L (3.5-5.0)
[2020-03-07] MEDS: Heparin 5000 UNITS/ML VIAL(*) 1 ml vial SUBCUT SCH ×3 (05:44→21:49)
[2020-03-07] MEDS ORDERED: Dextrose 50% Syringe 50 ml 25 GM/50 ML SYRINGE ONE (19:58)
[2020-03-07] MEDS ORDERED: Dextrose 50% Syringe 50 ml 25 GM/50 ML SYRINGE IV PUSH ONE (20:30)
[2020-03-07] MEDS ORDERED: D5W 1000 ml BAG 1,000 ML IV SCH (21:00)
[2020-03-08] MEDS: ZOSYN 3.375 GM Q8H per EXTENDED INFUSION IV SCH ×2 (00:54→09:06)
[2020-03-08 04:41] LABS: Hematocrit 22 % (35-47); Hemoglobin 7.3 g/dL (12.0-16.0); Mean Corpuscular HGB Conc 34 g/dL (31-36); Mean Corpuscular Hemoglobin 30 pg (27-31); Mean Corpuscular Volume 90 fL (80-97); Mean Platelet Volume 7.8 fL (7.4-10.4); Platelet Count 366 10^3/uL (150-450); Red Blood Count 2.39 10^6 /uL (3.70-4.87); Red Cell Distribution Width 14 % (10-15); White Blood Count 8.7 10^3/uL (3.5-10.8)
[2020-03-08 04:58] LABS: Calcium 8.1 mg/dL (8.6-10.3); EGFR Non-African American 79.4 (>60); Potassium 3.9 mmol/L (3.5-5.0)
[2020-03-08] MEDS: Heparin 5000 UNITS/ML VIAL(*) 1 ml vial SUBCUT SCH ×3 (05:09→21:20)
[2020-03-08] MEDS ORDERED: fentaNYL 100 mcg/2 ml 50 MCG/ML VIAL IV PRN (11:00)
[2020-03-08] MEDS: DEXTROSE CENTR SCH (16:34)
[2020-03-08] MEDS: [UNRECOGNIZED DRUG - OTHER] CENTR SCH (16:34)
[2020-03-08] MEDS: TPN CENTR SCH (16:34)
[2020-03-08] MEDS: LIPID EMULSION CENTR SCH (16:34)
[2020-03-08] MEDS: WATER CENTR SCH (16:34)
[2020-03-08] MEDS: Pantoprazole VIAL 40 MG VIAL IV SCH (18:40)
[2020-03-09] MEDS: Heparin 5000 UNITS/ML VIAL(*) 1 ml vial SUBCUT SCH ×3 (05:40→21:24)
[2020-03-09 06:55] LABS: Albumin 2.5 g/dL (3.2-5.2); BUN/Creatinine Ratio 7.4 (8-20); Calcium 8.4 mg/dL (8.6-10.3); EGFR African American 107.5 (>60); EGFR Non-African American 88.9 (>60); Globulin 2.6 g/dL (2-4); Magnesium 1.7 mg/dL (1.9-2.7); Phosphorus 2.8 mg/dL (2.5-5.0); Total Bilirubin 0.6 mg/dL (0.2-1.0); Total Protein 5.1 g/dL (6.4-8.9)
[2020-03-09] MEDS ORDERED: Magnesium Sulfate 2 gm BAG 2 GM/50 ML BAG IVPB ONE (10:04)
[2020-03-09] MEDS: [UNRECOGNIZED DRUG - OTHER] CENTR SCH (17:26)
[2020-03-09] MEDS: TPN CENTR SCH (17:26)
[2020-03-09] MEDS: LIPID EMULSION CENTR SCH (17:26)
[2020-03-09] MEDS: WATER CENTR SCH (17:26)
[2020-03-09] MEDS: DEXTROSE CENTR SCH (17:26)
[2020-03-10] MEDS: Heparin 5000 UNITS/ML VIAL(*) 1 ml vial SUBCUT SCH ×3 (06:35→22:15)
[2020-03-10 07:08] LABS: Albumin 2.6 g/dL (3.2-5.2); BUN/Creatinine Ratio 5.2 (8-20); Calcium 8.3 mg/dL (8.6-10.3); EGFR African American 93.2 (>60); Globulin 2.6 g/dL (2-4); Magnesium 2.2 mg/dL (1.9-2.7); Phosphorus 3.1 mg/dL (2.5-5.0); Total Bilirubin 0.6 mg/dL (0.2-1.0); Total Protein 5.2 g/dL (6.4-8.9)
[2020-03-10 09:56] LABS: Hepatitis B Surface Ab Not Immune (Immune); Hepatitis C Antibody Negative (Negative)
[2020-03-10 14:39] LABS: Hepatitis B Surface Antigen Nonreactive (Nonreactive)
[2020-03-10] MEDS ORDERED: cefTRIAXone ADVAN VIAL 1 GM in NS 0.9% 50 ML 50 ML IVPB SCH (17:00)
[2020-03-10] MEDS: LIPID EMULSION CENTR SCH (18:28)
[2020-03-10] MEDS: [UNRECOGNIZED DRUG - OTHER] CENTR SCH (18:28)
[2020-03-10] MEDS: guaiFENesin 100 mg/5 ml LIQ unit dose cup PO SCH ×3 (18:28→23:31)
[2020-03-10] MEDS: TPN CENTR SCH (18:28)
[2020-03-10] MEDS: DEXTROSE CENTR SCH (18:28)
[2020-03-10] MEDS: WATER CENTR SCH (18:28)
[2020-03-10] MEDS ORDERED: Alteplase (CATHFLO) 2 MG VIAL IV ONE (21:16)
[2020-03-11] MEDS ORDERED: Ondansetron 4 mg VIAL 2 MG/ML 2 ml VIAL IV ONE (00:44)
[2020-03-11] MEDS: guaiFENesin 100 mg/5 ml LIQ unit dose cup PO SCH ×3 (04:26→16:26)
[2020-03-11] MEDS: Heparin 5000 UNITS/ML VIAL(*) 1 ml vial SUBCUT SCH ×3 (05:14→21:23)
[2020-03-11] MEDS ORDERED: Morphine 2 MG/ML SYRINGE IV ONE ×2 (06:36→22:40)
[2020-03-11 07:10] LABS: Albumin 2.8 g/dL (3.2-5.2); BUN/Creatinine Ratio 5.4 (8-20); EGFR African American 75.9 (>60); EGFR Non-African American 62.7 (>60); Globulin 2.7 g/dL (2-4); Phosphorus 3.6 mg/dL (2.5-5.0); Potassium 4.5 mmol/L (3.5-5.0); Total Bilirubin 0.6 mg/dL (0.2-1.0); Total Protein 5.5 g/dL (6.4-8.9)
[2020-03-11 07:24] LABS: ABS Basophils 0.1 10^3/ul (0-0.2); ABS Lymphocytes 0.6 10^3/ul (1.0-4.8); ABS Monocytes 0.3 10^3/ul (0-0.8); Eosinophil % 0.4 %; Hematocrit 26 % (35-47); Hemoglobin 8.5 g/dL (12.0-16.0); Lymphocyte % 5.3 %; Mean Corpuscular HGB Conc 33 g/dL (31-36); Mean Corpuscular Hemoglobin 30 pg (27-31); Mean Corpuscular Volume 91 fL (80-97); Mean Platelet Volume 7.6 fL (7.4-10.4); Nucleated Red Blood Cells % 0.1; Platelet Count 455 10^3/uL (150-450); Red Blood Count 2.86 10^6 /uL (3.70-4.87); Red Cell Distribution Width 13 % (10-15); White Blood Count 12.3 10^3/uL (3.5-10.8)
[2020-03-11] MEDS: [UNRECOGNIZED DRUG - OTHER] CENTR SCH (16:55)
[2020-03-11] MEDS: TPN CENTR SCH (16:55)
[2020-03-11] MEDS: DEXTROSE CENTR SCH (16:55)
[2020-03-11] MEDS: WATER CENTR SCH (16:55)
[2020-03-11] MEDS: LIPID EMULSION CENTR SCH (16:55)
[2020-03-11] MEDS: NS 0.9% 1000 ml BAG 1,000 ML IV SCH (19:11)
[2020-03-12] MEDS: guaiFENesin 100 mg/5 ml LIQ unit dose cup PO SCH ×5 (05:16→22:50)
[2020-03-12] MEDS: Heparin 5000 UNITS/ML VIAL(*) 1 ml vial SUBCUT SCH ×3 (05:17→21:33)
[2020-03-12] MEDS: NS 0.9% 1000 ml BAG 1,000 ML IV SCH ×2 (05:43→16:10)
[2020-03-12 06:14] LABS: ABS Basophils 0.1 10^3/ul (0-0.2); ABS Eosinophils 0.2 10^3/ul (0-0.6); ABS Lymphocytes 1.1 10^3/ul (1.0-4.8); ABS Monocytes 0.4 10^3/ul (0-0.8); Eosinophil % 2.4 %; Hematocrit 23 % (35-47); Hemoglobin 7.7 g/dL (12.0-16.0); Lymphocyte % 12.3 %; Mean Corpuscular HGB Conc 33 g/dL (31-36); Mean Corpuscular Hemoglobin 29 pg (27-31); Mean Corpuscular Volume 90 fL (80-97); Mean Platelet Volume 7.5 fL (7.4-10.4); Platelet Count 412 10^3/uL (150-450); Red Blood Count 2.61 10^6 /uL (3.70-4.87); Red Cell Distribution Width 13 % (10-15)
[2020-03-12 06:16] LABS: Albumin 2.7 g/dL (3.2-5.2); BUN/Creatinine Ratio 7.1 (8-20); EGFR African American 84.3 (>60); EGFR Non-African American 69.6 (>60); Globulin 2.6 g/dL (2-4); HDL Cholesterol 21.9 mg/dL; Phosphorus 3.9 mg/dL (2.5-5.0); Potassium 4.2 mmol/L (3.5-5.0); Total Bilirubin 0.6 mg/dL (0.2-1.0); Total Protein 5.3 g/dL (6.4-8.9)
[2020-03-12 13:20] LABS: % Iron Saturation 22 % (15-55); Iron 42 ug/dL (50-212); Total Iron Binding Capacity 192 mcg/dL (250-450); Transferrin 137 mg/dL (203-362)
[2020-03-12 13:40] LABS: Ferritin 356.5 ng/mL (11-307)
[2020-03-12] MEDS ORDERED: Piperacillin/Tazobac ADVAN(*) 3.375 GM in NS 0.9% 100 ml BAG 100 ML IVPB ONE (16:35)
[2020-03-12] MEDS ORDERED: Zosyn per Pharmacy NOTE FOLLOW UP SCH (17:00)
[2020-03-12] MEDS: [UNRECOGNIZED DRUG - OTHER] CENTR SCH (17:27)
[2020-03-12] MEDS: WATER CENTR SCH (17:27)
[2020-03-12] MEDS: TPN CENTR SCH (17:27)
[2020-03-12] MEDS: DEXTROSE CENTR SCH (17:27)
[2020-03-12] MEDS: LIPID EMULSION CENTR SCH (17:27)
[2020-03-12] MEDS: Ondansetron 4 mg VIAL 2 MG/ML 2 ml VIAL IV PRN ×2 (18:23→23:20)
[2020-03-12] MEDS: ZOSYN 3.375 GM Q8H per EXTENDED INFUSION IV SCH (21:31)
[2020-03-13] MEDS: Ondansetron 4 mg VIAL 2 MG/ML 2 ml VIAL IV PRN ×2 (03:13→09:57)
[2020-03-13] MEDS: ZOSYN 3.375 GM Q8H per EXTENDED INFUSION IV SCH ×3 (05:47→21:20)
[2020-03-13 05:58] LABS: ABS Basophils 0.2 10^3/ul (0-0.2); ABS Eosinophils 0.1 10^3/ul (0-0.6); ABS Lymphocytes 0.5 10^3/ul (1.0-4.8); ABS Monocytes 0.3 10^3/ul (0-0.8); Eosinophil % 1.3 %; Hematocrit 20 % (35-47); Hemoglobin 6.6 g/dL (12.0-16.0); Lymphocyte % 8.3 %; Mean Corpuscular HGB Conc 33 g/dL (31-36); Mean Corpuscular Hemoglobin 30 pg (27-31); Mean Corpuscular Volume 90 fL (80-97); Mean Platelet Volume 7.4 fL (7.4-10.4); Platelet Count 328 10^3/uL (150-450); Red Cell Distribution Width 13 % (10-15); White Blood Count 5.9 10^3/uL (3.5-10.8)
[2020-03-13 06:26] LABS: Albumin 2.4 g/dL (3.2-5.2); BUN/Creatinine Ratio 5.7 (8-20); Calcium 8.5 mg/dL (8.6-10.3); EGFR African American 65.1 (>60); EGFR Non-African American 53.8 (>60); Globulin 2.4 g/dL (2-4); HDL Cholesterol 20.3 mg/dL; Magnesium 1.9 mg/dL (1.9-2.7); Phosphorus 3.6 mg/dL (2.5-5.0); Potassium 3.9 mmol/L (3.5-5.0); Total Bilirubin 0.7 mg/dL (0.2-1.0); Total Protein 4.8 g/dL (6.4-8.9)
[2020-03-13] MEDS: guaiFENesin 100 mg/5 ml LIQ unit dose cup PO SCH ×3 (06:32→16:25)
[2020-03-13] MEDS: Heparin 5000 UNITS/ML VIAL(*) 1 ml vial SUBCUT SCH ×3 (06:35→21:18)
[2020-03-13 09:31] LABS: Folate > 20.00 ng/mL (>3.99)
[2020-03-13] MEDS ORDERED: Ondansetron 4 mg VIAL 2 MG/ML 2 ml VIAL IV SCH (12:00)
[2020-03-13] MEDS ORDERED: [UNRECOGNIZED DRUG - OTHER] CENTR SCH (12:27)
[2020-03-13] MEDS ORDERED: LIPID EMULSION CENTR SCH (12:27)
[2020-03-13] MEDS ORDERED: TPN CENTR SCH (12:27)
[2020-03-13] MEDS ORDERED: WATER CENTR SCH (12:27)
[2020-03-13] MEDS ORDERED: DEXTROSE CENTR SCH (12:27)
[2020-03-13] MEDS: NS 0.9% 1000 ml BAG 1,000 ML IV SCH ×2 (13:06→23:30)
[2020-03-13] MEDS ORDERED: Metoclopramide 5 MG/ML VIAL (10 mg) IV SLOW PU SCH ×2 (13:26→14:00)
[2020-03-13] MEDS: Metoclopramide 5 MG/ML VIAL (10 mg) IV SLOW PU SCH ×2 (13:59→19:41)
[2020-03-13 14:34] LABS: Urine Appearance Cloudy; Urine Bilirubin Negative (Negative); Urine Blood 2+ (Negative); Urine Color Yellow; Urine Glucose Negative (Negative); Urine Ketones Negative (Negative); Urine Nitrite Negative (Negative); Urine Protein Negative (Negative); Urine Specific Gravity 1.017 (1.010-1.030); Urine Urobilinogen Negative (Negative)
[2020-03-13 14:37] LABS: Urine Bacteria Absent (Absent); Urine Red Blood Cell 2+(6-10/hpf) (Absent); Urine White Blood Cell Trace(0-5/hpf) (Absent)
[2020-03-13 16:28] LABS: Hematocrit 24 % (35-47)
[2020-03-13] MEDS: KCL 20 MEQ/100 ML IVPREMIX 20 MEQ/100 ML BAG IV SCH ×3 (16:34→21:23)
[2020-03-13] MEDS: [UNRECOGNIZED DRUG - OTHER] CENTR SCH (16:35)
[2020-03-13] MEDS: LIPID EMULSION CENTR SCH (16:35)
[2020-03-13] MEDS: WATER CENTR SCH (16:35)
[2020-03-13] MEDS: TPN CENTR SCH (16:35)
[2020-03-13] MEDS: DEXTROSE CENTR SCH (16:35)
[2020-03-14] MEDS: guaiFENesin 100 mg/5 ml LIQ unit dose cup PO SCH ×4 (00:25→16:07)
[2020-03-14] MEDS: Metoclopramide 5 MG/ML VIAL (10 mg) IV SLOW PU SCH ×4 (02:07→20:03)
[2020-03-14] MEDS: ZOSYN 3.375 GM Q8H per EXTENDED INFUSION IV SCH ×3 (05:52→21:33)
[2020-03-14] MEDS: Heparin 5000 UNITS/ML VIAL(*) 1 ml vial SUBCUT SCH ×3 (05:52→21:33)
[2020-03-14 06:00] LABS: ABS Basophils 0.5 10^3/ul (0-0.2); ABS Lymphocytes 0.9 10^3/ul (1.0-4.8); ABS Monocytes 0.4 10^3/ul (0-0.8); Eosinophil % 0.4 %; Hematocrit 24 % (35-47); Lymphocyte % 11.1 %; Mean Corpuscular HGB Conc 33 g/dL (31-36); Mean Corpuscular Hemoglobin 30 pg (27-31); Mean Corpuscular Volume 90 fL (80-97); Mean Platelet Volume 7.4 fL (7.4-10.4); Platelet Count 327 10^3/uL (150-450); Red Blood Count 2.67 10^6 /uL (3.70-4.87); Red Cell Distribution Width 14 % (10-15); White Blood Count 7.6 10^3/uL (3.5-10.8)
[2020-03-14] MEDS: NS 0.9% 1000 ml BAG 1,000 ML IV SCH ×2 (10:28→20:27)
[2020-03-14] MEDS ORDERED: KCL 20 MEQ/100 ML IVPREMIX 20 MEQ/100 ML BAG IV SCH (12:00)
[2020-03-14 12:01] LABS: BUN/Creatinine Ratio 9.5 (8-20); Calcium 8.6 mg/dL (8.6-10.3); EGFR African American 65.1 (>60); EGFR Non-African American 53.8 (>60); Potassium 3.7 mmol/L (3.5-5.0)
[2020-03-14] MEDS: TPN CENTR SCH (16:35)
[2020-03-14] MEDS: KCL 20 MEQ/100 ML IVPREMIX 20 MEQ/100 ML BAG IV SCH ×2 (16:35→20:50)
[2020-03-14] MEDS: [UNRECOGNIZED DRUG - OTHER] CENTR SCH (16:35)
[2020-03-14] MEDS: WATER CENTR SCH (16:35)
[2020-03-14] MEDS: LIPID EMULSION CENTR SCH (16:35)
[2020-03-14] MEDS: DEXTROSE CENTR SCH (16:35)
[2020-03-15] MEDS: guaiFENesin 100 mg/5 ml LIQ unit dose cup PO SCH ×4 (00:54→18:07)
[2020-03-15] MEDS: KCL 20 MEQ/100 ML IVPREMIX 20 MEQ/100 ML BAG IV SCH (00:57)
[2020-03-15] MEDS: Metoclopramide 5 MG/ML VIAL (10 mg) IV SLOW PU SCH ×4 (01:56→19:32)
[2020-03-15] MEDS: ZOSYN 3.375 GM Q8H per EXTENDED INFUSION IV SCH ×3 (05:25→21:00)
[2020-03-15 06:08] LABS: ABS Basophils 0.2 10^3/ul (0-0.2); ABS Eosinophils 0.2 10^3/ul (0-0.6); ABS Lymphocytes 0.6 10^3/ul (1.0-4.8); ABS Monocytes 0.4 10^3/ul (0-0.8); Eosinophil % 2.6 %; Hematocrit 23 % (35-47); Hemoglobin 7.7 g/dL (12.0-16.0); Lymphocyte % 9.3 %; Mean Corpuscular HGB Conc 33 g/dL (31-36); Mean Corpuscular Hemoglobin 30 pg (27-31); Mean Corpuscular Volume 91 fL (80-97); Mean Platelet Volume 7.7 fL (7.4-10.4); Platelet Count 289 10^3/uL (150-450); Red Blood Count 2.55 10^6 /uL (3.70-4.87); Red Cell Distribution Width 14 % (10-15); White Blood Count 5.9 10^3/uL (3.5-10.8)
[2020-03-15] MEDS: Heparin 5000 UNITS/ML VIAL(*) 1 ml vial SUBCUT SCH ×3 (06:11→22:14)
[2020-03-15 06:29] LABS: Albumin 2.3 g/dL (3.2-5.2); Albumin/Globulin Ratio 0.9 (1-3); BUN/Creatinine Ratio 8.2 (8-20); Calcium 8.3 mg/dL (8.6-10.3); EGFR African American 71.4 (>60); Globulin 2.5 g/dL (2-4); Phosphorus 3.3 mg/dL (2.5-5.0); Potassium 4.1 mmol/L (3.5-5.0); Total Bilirubin 0.8 mg/dL (0.2-1.0); Total Protein 4.8 g/dL (6.4-8.9)
[2020-03-15] MEDS: NS 0.9% 1000 ml BAG 1,000 ML IV SCH (06:40)
[2020-03-15] MEDS: Diazepam INJ CARPUJECT 5 MG/ML IV PRN (16:52)
[2020-03-15] MEDS ORDERED: WATER CENT\\PICC SCH (17:00)
[2020-03-15] MEDS ORDERED: LIPID EMULSION CENT\\PICC SCH (17:00)
[2020-03-15] MEDS ORDERED: DEXTROSE CENT\\PICC SCH (17:00)
[2020-03-15] MEDS ORDERED: TPN CENT\\PICC SCH (17:00)
[2020-03-15] MEDS ORDERED: [UNRECOGNIZED DRUG - OTHER] CENT\\PICC SCH (17:00)
[2020-03-16] MEDS: Metoclopramide 5 MG/ML VIAL (10 mg) IV SLOW PU SCH ×4 (01:46→21:22)
[2020-03-16] MEDS: guaiFENesin 100 mg/5 ml LIQ unit dose cup PO SCH ×5 (01:50→23:12)
[2020-03-16] MEDS: ZOSYN 3.375 GM Q8H per EXTENDED INFUSION IV SCH ×3 (05:29→21:26)
[2020-03-16] MEDS: Heparin 5000 UNITS/ML VIAL(*) 1 ml vial SUBCUT SCH ×3 (05:29→21:23)
[2020-03-16 05:58] LABS: ABS Basophils 0.1 10^3/ul (0-0.2); ABS Eosinophils 0.2 10^3/ul (0-0.6); ABS Lymphocytes 0.6 10^3/ul (1.0-4.8); ABS Monocytes 0.3 10^3/ul (0-0.8); Eosinophil % 3.9 %; Hematocrit 24 % (35-47); Hemoglobin 7.8 g/dL (12.0-16.0); Lymphocyte % 12.3 %; Mean Corpuscular HGB Conc 32 g/dL (31-36); Mean Corpuscular Hemoglobin 30 pg (27-31); Mean Corpuscular Volume 91 fL (80-97); Mean Platelet Volume 8.4 fL (7.4-10.4); Nucleated Red Blood Cells % 0.1; Platelet Count 244 10^3/uL (150-450); Red Blood Count 2.65 10^6 /uL (3.70-4.87); Red Cell Distribution Width 14 % (10-15); White Blood Count 4.8 10^3/uL (3.5-10.8)
[2020-03-16 06:08] LABS: BUN/Creatinine Ratio 7.8 (8-20); Calcium 8.7 mg/dL (8.6-10.3); EGFR African American 67.3 (>60); EGFR Non-African American 55.7 (>60); Potassium 3.7 mmol/L (3.5-5.0)
[2020-03-16] MEDS ORDERED: D5W 1000 ml BAG 1,000 ML IV SCH ×2 (11:00)
[2020-03-16] MEDS: D5NS 0.9% 1000 ml BAG 1,000 ML IV SCH (12:48)
[2020-03-16] MEDS: LIPID EMULSION TPN SCH (17:20)
[2020-03-16] MEDS: DEXTROSE TPN SCH (17:20)
[2020-03-16] MEDS: WATER TPN SCH (17:20)
[2020-03-16] MEDS: TPN TPN SCH (17:20)
[2020-03-16] MEDS: [UNRECOGNIZED DRUG - OTHER] TPN SCH (17:20)
[2020-03-17] MEDS: Metoclopramide 5 MG/ML VIAL (10 mg) IV SLOW PU SCH ×4 (03:26→21:15)
[2020-03-17] MEDS: guaiFENesin 100 mg/5 ml LIQ unit dose cup PO SCH ×3 (04:44→17:21)
[2020-03-17] MEDS ORDERED: Levofloxacin 750 MG IVPREMIX(* 750 MG/150 ML BAG IVPB SCH (05:00)
[2020-03-17] MEDS: Heparin 5000 UNITS/ML VIAL(*) 1 ml vial SUBCUT SCH ×3 (05:12→21:15)
[2020-03-17 05:44] LABS: Hematocrit 23 % (35-47); Hemoglobin 7.6 g/dL (12.0-16.0); Mean Corpuscular HGB Conc 33 g/dL (31-36); Mean Corpuscular Hemoglobin 30 pg (27-31); Mean Corpuscular Volume 91 fL (80-97); Mean Platelet Volume 8.3 fL (7.4-10.4); Platelet Count 212 10^3/uL (150-450); Red Blood Count 2.56 10^6 /uL (3.70-4.87); Red Cell Distribution Width 14 % (10-15); White Blood Count 5.6 10^3/uL (3.5-10.8)
[2020-03-17 05:59] LABS: BUN/Creatinine Ratio 7.5 (8-20); C Reactive Protein 143.34 mg/L (<8.01); Calcium 8.7 mg/dL (8.6-10.3); EGFR African American 74.9 (>60); EGFR Non-African American 61.9 (>60); Potassium 3.7 mmol/L (3.5-5.0)
[2020-03-17] MEDS: ZOSYN 3.375 GM Q8H per EXTENDED INFUSION IV SCH ×3 (06:30→21:56)
[2020-03-17 06:53] LABS: ABS Basophils 0.1 10^3/ul (0-0.2); ABS Eosinophils 0.3 10^3/ul (0-0.6); ABS Lymphocytes 0.7 10^3/ul (1.0-4.8); ABS Monocytes 0.3 10^3/ul (0-0.8); Eosinophil % 4.5 %; Lymphocyte % 11.8 %
[2020-03-17] MEDS ORDERED: D5W 500 ml BAG 500 ML IV SCH ×2 (10:00→16:00)
[2020-03-17] MEDS ORDERED: Scopolamine PATCH Remove NOTE PATCH OFF SCH (10:00)
[2020-03-17] MEDS ORDERED: D5W 1000 ml BAG 1,000 ML IV SCH ×2 (10:00→16:00)
[2020-03-17] MEDS ORDERED: Iodixanol (CONTRAST) 320 MG/ML 100 ML SDV IV SCH (12:38)
[2020-03-17 14:12] LABS: BUN/Creatinine Ratio 7.1 (8-20); Calcium 8.1 mg/dL (8.6-10.3); EGFR African American 84.3 (>60); EGFR Non-African American 69.6 (>60); Potassium 3.8 mmol/L (3.5-5.0)
[2020-03-17 16:56] LABS: Urine Appearance Cloudy; Urine Bilirubin Negative (Negative); Urine Blood Negative (Negative); Urine Color Yellow; Urine Glucose Negative (Negative); Urine Ketones Negative (Negative); Urine Nitrite Negative (Negative); Urine Protein Negative (Negative); Urine Specific Gravity 1.024 (1.010-1.030); Urine Urobilinogen Negative (Negative)
[2020-03-17 17:02] LABS: Urine Bacteria 1+ (Absent); Urine Red Blood Cell 2+(6-10/hpf) (Absent); Urine Squamous Epithelial Cell Present (Absent); Urine White Blood Cell 3+(>20/hpf) (Absent)
[2020-03-17] MEDS: DEXTROSE TPN SCH (17:20)
[2020-03-17] MEDS: WATER TPN SCH (17:20)
[2020-03-17] MEDS: [UNRECOGNIZED DRUG - OTHER] TPN SCH (17:20)
[2020-03-17] MEDS: LIPID EMULSION TPN SCH (17:20)
[2020-03-17] MEDS: TPN TPN SCH (17:20)
[2020-03-17] MEDS ORDERED: Succinylcholine 200 mg VIAL 20 mg/ml 10 ml VIAL (200 mg) ONE (19:43)
[2020-03-17] MEDS ORDERED: Etomidate 40 mg/20 ml (2 MG/ML) 20 ml VIAL (40 mg) ONE (19:43)
[2020-03-17] MEDS ORDERED: Norepinephrine 16MCG/ML IVPRE 4,000 MCG/250 ML BAG IV ONE (19:54)
[2020-03-17] MEDS ORDERED: Norepinephrine 16MCG/ML IVPRE 4,000 MCG/250 ML BAG IV SCH (20:00)
[2020-03-17] MEDS: Propofol 10 mg/ml 100 ML BTL 100 ML IV SCH (20:16)
[2020-03-17 20:28] LABS: Hematocrit 24 % (35-47); Hemoglobin 7.6 g/dL (12.0-16.0); Mean Corpuscular HGB Conc 32 g/dL (31-36); Mean Corpuscular Hemoglobin 30 pg (27-31); Mean Corpuscular Volume 94 fL (80-97); Mean Platelet Volume 8.7 fL (7.4-10.4); Platelet Count 243 10^3/uL (150-450); Red Blood Count 2.57 10^6 /uL (3.70-4.87); Red Cell Distribution Width 15 % (10-15); White Blood Count 8.1 10^3/uL (3.5-10.8)
[2020-03-17 20:43] LABS: ALT 21 U/L (7-52); Albumin 2.2 g/dL (3.2-5.2); Alkaline Phosphatase 83 U/L (34-104); Blood Urea Nitrogen 7 mg/dL (6-24); CO2 Carbon Dioxide 33 mmol/L (22-32); EGFR African American 79.9 (>60); Globulin 2.3 g/dL (2-4); Glucose 189 mg/dL (70-100); Total Protein 4.5 g/dL (6.4-8.9)
[2020-03-17 20:45] LABS: Anion Gap 2 mmol/L (2-11); Chloride 113 mmol/L (101-111); Sodium 148 mmol/L (135-145); Troponin I 0.01 ng/mL (<0.03)
[2020-03-17 20:48] LABS: ABS Basophils 0.1 10^3/ul (0-0.2); ABS Eosinophils 0.1 10^3/ul (0-0.6); ABS Lymphocytes 0.8 10^3/ul (1.0-4.8); ABS Monocytes 0.3 10^3/ul (0-0.8); ABS Nucleated RBC 0.1 10^3/ul; Lymphocyte % 9.8 %; Nucleated Red Blood Cells % 0.6
[2020-03-17 21:38] LABS: Potassium Redraw 4.1 mmol/L (3.5-5.0)
[2020-03-17] MEDS: D5W 1000 ml BAG 1,000 ML IV SCH (21:46)
[2020-03-18] MEDS: guaiFENesin 100 mg/5 ml LIQ unit dose cup PO SCH ×5 (01:10→23:14)
[2020-03-18] MEDS: Metoclopramide 5 MG/ML VIAL (10 mg) IV SLOW PU SCH ×4 (01:10→19:44)
[2020-03-18] MEDS: D5W 1000 ml BAG 1,000 ML IV SCH ×2 (02:06→22:10)
[2020-03-18] MEDS: Chlorhexidine MOUTHWASH 0.12% 15 ML UDC TOPICAL SCH ×6 (02:32→21:31)
[2020-03-18] MEDS ORDERED: Furosemide 20 mg/2 ml IV VIAL IV ONE (03:01)
[2020-03-18 04:28] LABS: Hematocrit 23 % (35-47); Hemoglobin 7.5 g/dL (12.0-16.0); Mean Corpuscular HGB Conc 32 g/dL (31-36); Mean Corpuscular Hemoglobin 29 pg (27-31); Mean Corpuscular Volume 92 fL (80-97); Mean Platelet Volume 8.8 fL (7.4-10.4); Platelet Count 223 10^3/uL (150-450); Red Blood Count 2.55 10^6 /uL (3.70-4.87); Red Cell Distribution Width 14 % (10-15); White Blood Count 7.6 10^3/uL (3.5-10.8)
[2020-03-18 04:49] LABS: BUN/Creatinine Ratio 8.1 (8-20); EGFR Non-African American 67.8 (>60); Globulin 2.1 g/dL (2-4); Magnesium 1.9 mg/dL (1.9-2.7); Phosphorus 3.3 mg/dL (2.5-5.0); Total Bilirubin 0.6 mg/dL (0.2-1.0); Total Protein 4.1 g/dL (6.4-8.9)
[2020-03-18 04:59] LABS: Potassium 3.7 mmol/L (3.5-5.0)
[2020-03-18] MEDS: ZOSYN 3.375 GM Q8H per EXTENDED INFUSION IV SCH ×3 (05:00→21:31)
[2020-03-18 05:12] LABS: ABS Eosinophils 0.1 10^3/ul (0-0.6); ABS Lymphocytes 0.8 10^3/ul (1.0-4.8); ABS Monocytes 0.4 10^3/ul (0-0.8); Eosinophil % 1.2 %; Lymphocyte % 11.1 %; Nucleated Red Blood Cells % 0.1
[2020-03-18] MEDS: Heparin 5000 UNITS/ML VIAL(*) 1 ml vial SUBCUT SCH ×3 (05:51→21:30)
[2020-03-18] MEDS: Pantoprazole VIAL 40 MG VIAL IV SCH (09:21)
[2020-03-18] MEDS: Propofol 10 mg/ml 100 ML BTL 100 ML IV SCH (11:13)
[2020-03-18] MEDS: Dexmedetomidine 1,000 MCG in NS 0.9% 250 ml 240 ML IV SCH (12:50)
[2020-03-18] MEDS ORDERED: Norepinephrine 16MCG/ML IVPRE 4,000 MCG/250 ML BAG IV SCH (14:42)
[2020-03-18] MEDS: Nystatin TOP POWDER 15 GM BTL TOPICAL SCH ×2 (15:00→21:31)
[2020-03-18] MEDS: LIPID EMULSION TPN SCH (17:31)
[2020-03-18] MEDS: [UNRECOGNIZED DRUG - OTHER] TPN SCH (17:31)
[2020-03-18] MEDS: DEXTROSE TPN SCH (17:31)
[2020-03-18] MEDS: WATER TPN SCH (17:31)
[2020-03-18] MEDS: TPN TPN SCH (17:31)
[2020-03-19] MEDS: Metoclopramide 5 MG/ML VIAL (10 mg) IV SLOW PU SCH ×4 (01:29→19:27)
[2020-03-19] MEDS: Chlorhexidine MOUTHWASH 0.12% 15 ML UDC TOPICAL SCH ×6 (01:29→21:07)
[2020-03-19] MEDS: ZOSYN 3.375 GM Q8H per EXTENDED INFUSION IV SCH ×3 (04:38→20:39)
[2020-03-19] MEDS: Heparin 5000 UNITS/ML VIAL(*) 1 ml vial SUBCUT SCH ×3 (05:03→21:07)
[2020-03-19] MEDS: guaiFENesin 100 mg/5 ml LIQ unit dose cup PO SCH ×4 (05:03→23:51)
[2020-03-19] MEDS: Nystatin TOP POWDER 15 GM BTL TOPICAL SCH ×2 (09:12→20:14)
[2020-03-19] MEDS: Pantoprazole VIAL 40 MG VIAL IV SCH (09:12)
[2020-03-19 11:04] LABS: Hematocrit 22 % (35-47); Hemoglobin 7.3 g/dL (12.0-16.0); Mean Corpuscular HGB Conc 33 g/dL (31-36); Mean Corpuscular Hemoglobin 29 pg (27-31); Mean Corpuscular Volume 88 fL (80-97); Mean Platelet Volume 9.6 fL (7.4-10.4); Platelet Count 162 10^3/uL (150-450); Red Blood Count 2.49 10^6 /uL (3.70-4.87); Red Cell Distribution Width 14 % (10-15); White Blood Count 7.2 10^3/uL (3.5-10.8)
[2020-03-19 11:18] LABS: Albumin 1.8 g/dL (3.2-5.2); Albumin/Globulin Ratio 0.9 (1-3); BUN/Creatinine Ratio 8.4 (8-20); EGFR African American 73.1 (>60); EGFR Non-African American 60.4 (>60); Globulin 2.1 g/dL (2-4); Potassium 3.9 mmol/L (3.5-5.0); Total Bilirubin 0.6 mg/dL (0.2-1.0); Total Protein 3.9 g/dL (6.4-8.9)
[2020-03-19 11:34] LABS: ABS Basophils 0.1 10^3/ul (0-0.2); ABS Eosinophils 0.4 10^3/ul (0-0.6); ABS Lymphocytes 0.9 10^3/ul (1.0-4.8); ABS Monocytes 0.2 10^3/ul (0-0.8); Eosinophil % 5.2 %; Lymphocyte % 12.8 %; Nucleated Red Blood Cells % 0.1
[2020-03-19] MEDS: DEXTROSE TPN SCH (17:06)
[2020-03-19] MEDS: [UNRECOGNIZED DRUG - OTHER] TPN SCH (17:06)
[2020-03-19] MEDS: TPN TPN SCH (17:06)
[2020-03-19] MEDS: WATER TPN SCH (17:06)
[2020-03-19] MEDS: LIPID EMULSION TPN SCH (17:06)
[2020-03-19] MEDS: D5W 1000 ml BAG 1,000 ML IV SCH (17:22)
[2020-03-19] MEDS: Dexmedetomidine 1,000 MCG in NS 0.9% 250 ml 240 ML IV SCH (18:06)
[2020-03-20] MEDS: Metoclopramide 5 MG/ML VIAL (10 mg) IV SLOW PU SCH ×4 (02:15→20:50)
[2020-03-20] MEDS: Chlorhexidine MOUTHWASH 0.12% 15 ML UDC TOPICAL SCH ×6 (02:16→21:07)
[2020-03-20 03:48] LABS: Hematocrit 24 % (35-47); Hemoglobin 7.8 g/dL (12.0-16.0); Mean Corpuscular HGB Conc 33 g/dL (31-36); Mean Corpuscular Hemoglobin 29 pg (27-31); Mean Corpuscular Volume 89 fL (80-97); Mean Platelet Volume 9.4 fL (7.4-10.4); Platelet Count 197 10^3/uL (150-450); Red Blood Count 2.65 10^6 /uL (3.70-4.87); Red Cell Distribution Width 14 % (10-15); White Blood Count 9.6 10^3/uL (3.5-10.8)
[2020-03-20 04:03] LABS: BUN/Creatinine Ratio 6.8 (8-20); Calcium 7.5 mg/dL (8.6-10.3); EGFR African American 57.3 (>60); EGFR Non-African American 47.3 (>60)
[2020-03-20] MEDS: ZOSYN 3.375 GM Q8H per EXTENDED INFUSION IV SCH ×3 (04:45→20:49)
[2020-03-20] MEDS: guaiFENesin 100 mg/5 ml LIQ unit dose cup PO SCH ×4 (05:12→23:44)
[2020-03-20] MEDS: Heparin 5000 UNITS/ML VIAL(*) 1 ml vial SUBCUT SCH ×3 (05:12→20:50)
[2020-03-20] MEDS: Nystatin TOP POWDER 15 GM BTL TOPICAL SCH ×2 (08:55→20:50)
[2020-03-20] MEDS: Pantoprazole VIAL 40 MG VIAL IV SCH (09:02)
[2020-03-20] MEDS: D5W 1000 ml BAG 1,000 ML IV SCH (13:04)
[2020-03-20] MEDS: Dexmedetomidine 1,000 MCG in NS 0.9% 250 ml 240 ML IV SCH (13:40)
[2020-03-20] MEDS: TPN TPN SCH (17:23)
[2020-03-20] MEDS: LIPID EMULSION TPN SCH (17:23)
[2020-03-20] MEDS: [UNRECOGNIZED DRUG - OTHER] TPN SCH (17:23)
[2020-03-20] MEDS: WATER TPN SCH (17:23)
[2020-03-20] MEDS: DEXTROSE TPN SCH (17:23)
[2020-03-20] MEDS: fentaNYL 100 mcg/2 ml 50 MCG/ML VIAL IV PRN (21:38)
[2020-03-21] MEDS: Metoclopramide 5 MG/ML VIAL (10 mg) IV SLOW PU SCH ×4 (02:15→20:17)
[2020-03-21] MEDS: Chlorhexidine MOUTHWASH 0.12% 15 ML UDC TOPICAL SCH ×6 (02:15→21:17)
[2020-03-21] MEDS: Heparin 5000 UNITS/ML VIAL(*) 1 ml vial SUBCUT SCH ×3 (05:44→21:17)
[2020-03-21] MEDS: ZOSYN 3.375 GM Q8H per EXTENDED INFUSION IV SCH ×3 (05:44→21:17)
[2020-03-21] MEDS: guaiFENesin 100 mg/5 ml LIQ unit dose cup PO SCH ×3 (05:44→17:36)
[2020-03-21] MEDS: Dexmedetomidine 1,000 MCG in NS 0.9% 250 ml 240 ML IV SCH ×2 (05:45→20:31)
[2020-03-21] MEDS: Pantoprazole VIAL 40 MG VIAL IV SCH (07:30)
[2020-03-21] MEDS: Nystatin TOP POWDER 15 GM BTL TOPICAL SCH ×2 (07:30→20:17)
[2020-03-21] MEDS: Diazepam INJ CARPUJECT 5 MG/ML IV PRN (13:35)
[2020-03-21] MEDS: [UNRECOGNIZED DRUG - OTHER] TPN SCH (17:14)
[2020-03-21] MEDS: LIPID EMULSION TPN SCH (17:14)
[2020-03-21] MEDS: TPN TPN SCH (17:14)
[2020-03-21] MEDS: DEXTROSE TPN SCH (17:14)
[2020-03-21] MEDS: WATER TPN SCH (17:14)
[2020-03-22] MEDS: guaiFENesin 100 mg/5 ml LIQ unit dose cup PO SCH ×4 (00:12→16:53)
[2020-03-22] MEDS: Metoclopramide 5 MG/ML VIAL (10 mg) IV SLOW PU SCH ×4 (02:26→20:38)
[2020-03-22] MEDS: fentaNYL 100 mcg/2 ml 50 MCG/ML VIAL IV PRN ×5 (02:26→18:10)
[2020-03-22] MEDS: Chlorhexidine MOUTHWASH 0.12% 15 ML UDC TOPICAL SCH ×6 (02:26→22:46)
[2020-03-22 04:45] LABS: Hematocrit 21 % (35-47); Hemoglobin 6.8 g/dL (12.0-16.0); Mean Corpuscular HGB Conc 33 g/dL (31-36); Mean Corpuscular Hemoglobin 29 pg (27-31); Mean Corpuscular Volume 89 fL (80-97); Mean Platelet Volume 9.3 fL (7.4-10.4); Platelet Count 208 10^3/uL (150-450); Red Blood Count 2.35 10^6 /uL (3.70-4.87); Red Cell Distribution Width 14 % (10-15); White Blood Count 13.5 10^3/uL (3.5-10.8)
[2020-03-22 05:00] LABS: BUN/Creatinine Ratio 7.1 (8-20); Calcium 7.2 mg/dL (8.6-10.3); EGFR African American 52.6 (>60); EGFR Non-African American 43.5 (>60); Magnesium 2.3 mg/dL (1.9-2.7)
[2020-03-22] MEDS: Heparin 5000 UNITS/ML VIAL(*) 1 ml vial SUBCUT SCH ×3 (05:51→22:46)
[2020-03-22] MEDS: ZOSYN 3.375 GM Q8H per EXTENDED INFUSION IV SCH ×3 (05:51→20:37)
[2020-03-22] MEDS: Dexmedetomidine 1,000 MCG in NS 0.9% 250 ml 240 ML IV SCH (08:22)
[2020-03-22] MEDS: Pantoprazole VIAL 40 MG VIAL IV SCH (08:23)
[2020-03-22] MEDS: Nystatin TOP POWDER 15 GM BTL TOPICAL SCH ×2 (08:23→20:38)
[2020-03-22] MEDS ORDERED: Lactated Ringers 1000 ml BAG 500 ML IV SCH ×2 (11:00→16:00)
[2020-03-22] MEDS: NS 0.45% 1000 ml BAG 1,000 ML IV SCH (15:56)
[2020-03-22] MEDS ORDERED: Lactated Ringers 1000 ml BAG 500 ML IV ONE (16:00)
[2020-03-22] MEDS: Diazepam INJ CARPUJECT 5 MG/ML IV PRN (16:15)
[2020-03-22] MEDS: TPN TPN SCH (16:53)
[2020-03-22] MEDS: WATER TPN SCH (16:53)
[2020-03-22] MEDS: DEXTROSE TPN SCH (16:53)
[2020-03-22] MEDS: [UNRECOGNIZED DRUG - OTHER] TPN SCH (16:53)
[2020-03-22] MEDS: LIPID EMULSION TPN SCH (16:53)
[2020-03-23] MEDS: guaiFENesin 100 mg/5 ml LIQ unit dose cup PO SCH ×4 (00:06→17:36)
[2020-03-23] MEDS: fentaNYL 100 mcg/2 ml 50 MCG/ML VIAL IV PRN ×5 (01:02→23:29)
[2020-03-23] MEDS: Metoclopramide 5 MG/ML VIAL (10 mg) IV SLOW PU SCH ×3 (02:43→15:03)
[2020-03-23] MEDS: Chlorhexidine MOUTHWASH 0.12% 15 ML UDC TOPICAL SCH ×6 (02:43→21:35)
[2020-03-23] MEDS: Heparin 5000 UNITS/ML VIAL(*) 1 ml vial SUBCUT SCH ×3 (05:30→21:35)
[2020-03-23] MEDS: ZOSYN 3.375 GM Q8H per EXTENDED INFUSION IV SCH ×3 (05:30→21:35)
[2020-03-23] MEDS: Dexmedetomidine 1,000 MCG in NS 0.9% 250 ml 240 ML IV SCH ×2 (05:43→19:33)
[2020-03-23] MEDS: Pantoprazole VIAL 40 MG VIAL IV SCH (08:53)
[2020-03-23] MEDS: Nystatin TOP POWDER 15 GM BTL TOPICAL SCH ×2 (08:53→21:35)
[2020-03-23] MEDS: Diazepam INJ CARPUJECT 5 MG/ML IV PRN ×2 (09:25→17:03)
[2020-03-23 11:35] LABS: Hematocrit 19 % (35-47); Hemoglobin 6.3 g/dL (12.0-16.0); Mean Corpuscular HGB Conc 33 g/dL (31-36); Mean Corpuscular Hemoglobin 29 pg (27-31); Mean Corpuscular Volume 88 fL (80-97); Mean Platelet Volume 9.7 fL (7.4-10.4); Platelet Count 275 10^3/uL (150-450); Red Blood Count 2.21 10^6 /uL (3.70-4.87); Red Cell Distribution Width 15 % (10-15); White Blood Count 15.4 10^3/uL (3.5-10.8)
[2020-03-23 12:07] LABS: BUN/Creatinine Ratio 7.8 (8-20); Calcium 7.3 mg/dL (8.6-10.3); EGFR African American 51.6 (>60); EGFR Non-African American 42.7 (>60); Magnesium 2.4 mg/dL (1.9-2.7); Phosphorus 4.5 mg/dL (2.5-5.0)
[2020-03-23 13:56] LABS: Microcytosis 2+; Polychromasia 1+
[2020-03-23 13:57] LABS: ABS Basophils 0.1 10^3/ul (0-0.2); ABS Eosinophils 0.5 10^3/ul (0-0.6); ABS Lymphocytes 1.2 10^3/ul (1.0-4.8); ABS Monocytes 0.6 10^3/ul (0-0.8); Lymphocyte % 7.9 %
[2020-03-23] MEDS: [UNRECOGNIZED DRUG - OTHER] TPN SCH (17:36)
[2020-03-23] MEDS: NS 0.45% 1000 ml BAG 1,000 ML IV SCH (17:36)
[2020-03-23] MEDS: DEXTROSE TPN SCH (17:36)
[2020-03-23] MEDS: TPN TPN SCH (17:36)
[2020-03-23] MEDS: LIPID EMULSION TPN SCH (17:36)
[2020-03-23] MEDS: WATER TPN SCH (17:36)
[2020-03-23] MEDS ORDERED: Diazepam INJ CARPUJECT 5 MG/ML IV ONE (19:25)
[2020-03-24] MEDS: Chlorhexidine MOUTHWASH 0.12% 15 ML UDC TOPICAL SCH ×6 (01:41→21:09)
[2020-03-24] MEDS: fentaNYL 100 mcg/2 ml 50 MCG/ML VIAL IV PRN (01:41)
[2020-03-24 04:43] LABS: Hematocrit 26 % (35-47); Hemoglobin 8.6 g/dL (12.0-16.0); Mean Corpuscular HGB Conc 33 g/dL (31-36); Mean Corpuscular Hemoglobin 29 pg (27-31); Mean Corpuscular Volume 87 fL (80-97); Mean Platelet Volume 8.2 fL (7.4-10.4); Platelet Count 386 10^3/uL (150-450); Red Blood Count 2.99 10^6 /uL (3.70-4.87); Red Cell Distribution Width 14 % (10-15)
[2020-03-24 04:59] LABS: BUN/Creatinine Ratio 9.5 (8-20); EGFR African American 52.6 (>60); EGFR Non-African American 43.5 (>60); Potassium 4.1 mmol/L (3.5-5.0)
[2020-03-24 05:25] LABS: ABS Basophils 0.3 10^3/ul (0-0.2); ABS Eosinophils 0.6 10^3/ul (0-0.6); ABS Lymphocytes 1.4 10^3/ul (1.0-4.8); ABS Monocytes 0.8 10^3/ul (0-0.8); Eosinophil % 2.8 %; Lymphocyte % 6.8 %; Nucleated Red Blood Cells % 0.1
[2020-03-24] MEDS: Heparin 5000 UNITS/ML VIAL(*) 1 ml vial SUBCUT SCH ×3 (05:39→21:08)
[2020-03-24] MEDS: ZOSYN 3.375 GM Q8H per EXTENDED INFUSION IV SCH ×3 (05:40→21:08)
[2020-03-24] MEDS: Pantoprazole VIAL 40 MG VIAL IV SCH (08:31)
[2020-03-24] MEDS: Nystatin TOP POWDER 15 GM BTL TOPICAL SCH ×2 (08:31→20:00)
[2020-03-24] MEDS: Diazepam INJ CARPUJECT 5 MG/ML IV PRN ×3 (08:32→14:46)
[2020-03-24] MEDS: Dexmedetomidine 1,000 MCG in NS 0.9% 250 ml 240 ML IV SCH ×2 (09:19→22:46)
[2020-03-24] MEDS ORDERED: Vancomycin(*) 1,000 MG in NS 0.9% 250 ml 250 ML IVPB ONE (10:30)
[2020-03-24] MEDS ORDERED: Vancomycin per Pharmacy 1 EA NOTE FOLLOW UP PRN (10:37)
[2020-03-24] MEDS: fentaNYL 100 mcg/2 ml 50 MCG/ML VIAL IV SLOW PU ONE (10:45)
[2020-03-24] MEDS: Fluconazole 400 MG IVPREMIX(*) 400 MG/200 ML BAG IVPB SCH (13:24)
[2020-03-24] MEDS: LIPID EMULSION TPN SCH (18:01)
[2020-03-24] MEDS: [UNRECOGNIZED DRUG - OTHER] TPN SCH (18:01)
[2020-03-24] MEDS: WATER TPN SCH (18:01)
[2020-03-24] MEDS: TPN TPN SCH (18:01)
[2020-03-24] MEDS: DEXTROSE TPN SCH (18:01)
[2020-03-24] MEDS: NS 0.45% 1000 ml BAG 1,000 ML IV SCH (20:56)
[2020-03-24] MEDS: Vancomycin(*) 500 MG in NS 0.9% 250 ml 250 ML IVPB SCH (22:46)
[2020-03-25] MEDS: Chlorhexidine MOUTHWASH 0.12% 15 ML UDC TOPICAL SCH ×6 (03:14→21:23)
[2020-03-25] MEDS: ZOSYN 3.375 GM Q8H per EXTENDED INFUSION IV SCH ×3 (05:42→21:23)
[2020-03-25] MEDS: Heparin 5000 UNITS/ML VIAL(*) 1 ml vial SUBCUT SCH ×3 (05:42→21:23)
[2020-03-25 06:30] LABS: Hematocrit 24 % (35-47); Hemoglobin 7.8 g/dL (12.0-16.0); Mean Corpuscular HGB Conc 34 g/dL (31-36); Mean Corpuscular Hemoglobin 29 pg (27-31); Mean Corpuscular Volume 87 fL (80-97); Mean Platelet Volume 8.5 fL (7.4-10.4); Platelet Count 328 10^3/uL (150-450); Red Blood Count 2.69 10^6 /uL (3.70-4.87); Red Cell Distribution Width 15 % (10-15); White Blood Count 14.8 10^3/uL (3.5-10.8)
[2020-03-25 06:45] LABS: BUN/Creatinine Ratio 8.5 (8-20); Calcium 7.2 mg/dL (8.6-10.3); EGFR African American 56.7 (>60); EGFR Non-African American 46.9 (>60)
[2020-03-25 07:09] LABS: ABS Basophils 0.2 10^3/ul (0-0.2); ABS Eosinophils 0.4 10^3/ul (0-0.6); ABS Lymphocytes 1.2 10^3/ul (1.0-4.8); ABS Monocytes 0.6 10^3/ul (0-0.8)
[2020-03-25] MEDS: Pantoprazole VIAL 40 MG VIAL IV SCH (09:17)
[2020-03-25] MEDS: Nystatin TOP POWDER 15 GM BTL TOPICAL SCH ×2 (09:20→21:22)
[2020-03-25] MEDS: Vancomycin(*) 500 MG in NS 0.9% 250 ml 250 ML IVPB SCH ×2 (11:18→21:23)
[2020-03-25] MEDS: NS 0.45% 1000 ml BAG 1,000 ML IV SCH (11:18)
[2020-03-25] MEDS: Dexmedetomidine 1,000 MCG in NS 0.9% 250 ml 240 ML IV SCH (12:49)
[2020-03-25] MEDS: Fluconazole 400 MG IVPREMIX(*) 400 MG/200 ML BAG IVPB SCH (12:53)
[2020-03-25] MEDS: DEXTROSE TPN SCH (17:57)
[2020-03-25] MEDS: TPN TPN SCH (17:57)
[2020-03-25] MEDS: [UNRECOGNIZED DRUG - OTHER] TPN SCH (17:57)
[2020-03-25] MEDS: LIPID EMULSION TPN SCH (17:57)
[2020-03-25] MEDS: WATER TPN SCH (17:57)
[2020-03-26] MEDS: Chlorhexidine MOUTHWASH 0.12% 15 ML UDC TOPICAL SCH ×6 (01:19→21:35)
[2020-03-26] MEDS: Dexmedetomidine 1,000 MCG in NS 0.9% 250 ml 240 ML IV SCH ×2 (02:29→15:06)
[2020-03-26 04:49] LABS: Hematocrit 25 % (35-47); Hemoglobin 8.1 g/dL (12.0-16.0); Mean Corpuscular HGB Conc 33 g/dL (31-36); Mean Corpuscular Hemoglobin 29 pg (27-31); Mean Corpuscular Volume 87 fL (80-97); Mean Platelet Volume 8.3 fL (7.4-10.4); Platelet Count 363 10^3/uL (150-450); Red Blood Count 2.82 10^6 /uL (3.70-4.87); Red Cell Distribution Width 15 % (10-15); White Blood Count 14.6 10^3/uL (3.5-10.8)
[2020-03-26 05:08] LABS: BUN/Creatinine Ratio 8.7 (8-20); EGFR African American 66.4 (>60); EGFR Non-African American 54.8 (>60); Potassium 4.2 mmol/L (3.5-5.0)
[2020-03-26 05:19] LABS: ABS Eosinophils 0.4 10^3/ul (0-0.6); ABS Lymphocytes 1.1 10^3/ul (1.0-4.8); ABS Monocytes 0.6 10^3/ul (0-0.8); Eosinophil % 2.8 %; Lymphocyte % 7.7 %
[2020-03-26] MEDS: ZOSYN 3.375 GM Q8H per EXTENDED INFUSION IV SCH ×3 (05:41→21:35)
[2020-03-26] MEDS: Heparin 5000 UNITS/ML VIAL(*) 1 ml vial SUBCUT SCH ×3 (05:41→21:35)
[2020-03-26] MEDS: Pantoprazole VIAL 40 MG VIAL IV SCH (07:41)
[2020-03-26] MEDS: Nystatin TOP POWDER 15 GM BTL TOPICAL SCH ×2 (07:41→21:35)
[2020-03-26] MEDS ORDERED: Furosemide 40 mg/4 ml IV VIAL IV ONE (08:46)
[2020-03-26] MEDS ORDERED: Vancomycin Trough Check NOTE FOLLOW UP ONE (10:30)
[2020-03-26] MEDS: Vancomycin(*) 500 MG in NS 0.9% 250 ml 250 ML IVPB SCH ×2 (11:43→22:44)
[2020-03-26] MEDS: Fluconazole 400 MG IVPREMIX(*) 400 MG/200 ML BAG IVPB SCH (13:57)
[2020-03-26] MEDS: WATER TPN SCH (16:55)
[2020-03-26] MEDS: [UNRECOGNIZED DRUG - OTHER] TPN SCH (16:55)
[2020-03-26] MEDS: DEXTROSE TPN SCH (16:55)
[2020-03-26] MEDS: LIPID EMULSION TPN SCH (16:55)
[2020-03-26] MEDS: TPN TPN SCH (16:55)
[2020-03-27] MEDS: Chlorhexidine MOUTHWASH 0.12% 15 ML UDC TOPICAL SCH ×6 (02:46→22:06)
[2020-03-27] MEDS: ZOSYN 3.375 GM Q8H per EXTENDED INFUSION IV SCH (05:26)
[2020-03-27] MEDS: Heparin 5000 UNITS/ML VIAL(*) 1 ml vial SUBCUT SCH ×3 (05:27→22:06)
[2020-03-27] MEDS: Dexmedetomidine 1,000 MCG in NS 0.9% 250 ml 240 ML IV SCH ×2 (05:27→17:02)
[2020-03-27 05:40] LABS: ABS Basophils 0.2 10^3/ul (0-0.2); ABS Eosinophils 0.3 10^3/ul (0-0.6); ABS Lymphocytes 1.1 10^3/ul (1.0-4.8); ABS Monocytes 0.7 10^3/ul (0-0.8); Eosinophil % 2.1 %; Hematocrit 25 % (35-47); Hemoglobin 8.1 g/dL (12.0-16.0); Lymphocyte % 8.1 %; Mean Corpuscular HGB Conc 33 g/dL (31-36); Mean Corpuscular Hemoglobin 29 pg (27-31); Mean Corpuscular Volume 88 fL (80-97); Mean Platelet Volume 8.6 fL (7.4-10.4); Nucleated Red Blood Cells % 0.1; Platelet Count 396 10^3/uL (150-450); Red Blood Count 2.82 10^6 /uL (3.70-4.87); Red Cell Distribution Width 15 % (10-15); White Blood Count 13.7 10^3/uL (3.5-10.8)
[2020-03-27 05:59] LABS: BUN/Creatinine Ratio 7.6 (8-20); Calcium 6.8 mg/dL (8.6-10.3); EGFR African American 64.9 (>60); EGFR Non-African American 53.6 (>60); Potassium 4.1 mmol/L (3.5-5.0)
[2020-03-27] MEDS: Nystatin TOP POWDER 15 GM BTL TOPICAL SCH ×2 (08:40→22:06)
[2020-03-27] MEDS: Pantoprazole VIAL 40 MG VIAL IV SCH (08:41)
[2020-03-27] MEDS ORDERED: Docusate LIQ 100 MG/10 ML UDC PO PRN (08:59)
[2020-03-27] MEDS ORDERED: Furosemide 40 mg/4 ml IV VIAL IV ONE (08:59)
[2020-03-27] MEDS: Vancomycin(*) 500 MG in NS 0.9% 250 ml 250 ML IVPB SCH (10:47)
[2020-03-27] MEDS: Fluconazole 400 MG IVPREMIX(*) 400 MG/200 ML BAG IVPB SCH (12:41)
[2020-03-27] MEDS: DEXTROSE TPN SCH (16:30)
[2020-03-27] MEDS: LIPID EMULSION TPN SCH (16:30)
[2020-03-27] MEDS: [UNRECOGNIZED DRUG - OTHER] TPN SCH (16:30)
[2020-03-27] MEDS: WATER TPN SCH (16:30)
[2020-03-27] MEDS: TPN TPN SCH (16:30)
[2020-03-28] MEDS: Chlorhexidine MOUTHWASH 0.12% 15 ML UDC TOPICAL SCH ×6 (02:30→21:07)
[2020-03-28] MEDS: Heparin 5000 UNITS/ML VIAL(*) 1 ml vial SUBCUT SCH ×3 (05:42→21:06)
[2020-03-28 05:59] LABS: Hematocrit 25 % (35-47); Hemoglobin 8.1 g/dL (12.0-16.0); Mean Corpuscular HGB Conc 33 g/dL (31-36); Mean Corpuscular Hemoglobin 28 pg (27-31); Mean Corpuscular Volume 88 fL (80-97); Mean Platelet Volume 8.2 fL (7.4-10.4); Platelet Count 376 10^3/uL (150-450); Red Blood Count 2.85 10^6 /uL (3.70-4.87); Red Cell Distribution Width 15 % (10-15); White Blood Count 12.6 10^3/uL (3.5-10.8)
[2020-03-28 06:18] LABS: BUN/Creatinine Ratio 7.2 (8-20); Calcium 7.3 mg/dL (8.6-10.3); EGFR African American 60.9 (>60); EGFR Non-African American 50.3 (>60); Potassium 3.8 mmol/L (3.5-5.0)
[2020-03-28 06:35] LABS: ABS Eosinophils 0.3 10^3/ul (0-0.6); ABS Lymphocytes 1.4 10^3/ul (1.0-4.8); ABS Monocytes 0.7 10^3/ul (0-0.8); Eosinophil % 2.3 %; Lymphocyte % 11.1 %
[2020-03-28 06:38] LABS: Polychromasia 1+
[2020-03-28] MEDS: Dexmedetomidine 1,000 MCG in NS 0.9% 250 ml 240 ML IV SCH ×2 (07:35→22:25)
[2020-03-28] MEDS: Pantoprazole VIAL 40 MG VIAL IV SCH (09:03)
[2020-03-28] MEDS: Nystatin TOP POWDER 15 GM BTL TOPICAL SCH ×2 (09:03→22:38)
[2020-03-28] MEDS: fentaNYL 100 mcg/2 ml 50 MCG/ML VIAL IV PRN ×2 (13:12→20:32)
[2020-03-28] MEDS: Fluconazole 400 MG IVPREMIX(*) 400 MG/200 ML BAG IVPB SCH (13:17)
[2020-03-28] MEDS: Diazepam INJ CARPUJECT 5 MG/ML IV PRN ×2 (16:18→20:31)
[2020-03-28] MEDS: TPN TPN SCH (16:57)
[2020-03-28] MEDS: LIPID EMULSION TPN SCH (16:57)
[2020-03-28] MEDS: [UNRECOGNIZED DRUG - OTHER] TPN SCH (16:57)
[2020-03-28] MEDS: WATER TPN SCH (16:57)
[2020-03-28] MEDS: DEXTROSE TPN SCH (16:57)
[2020-03-29] MEDS: Chlorhexidine MOUTHWASH 0.12% 15 ML UDC TOPICAL SCH ×6 (02:39→22:10)
[2020-03-29] MEDS ORDERED: NS 0.9% 1000 ml BAG 1,000 ML IV ONE (04:03)
[2020-03-29 05:43] LABS: Hematocrit 24 % (35-47); Hemoglobin 7.7 g/dL (12.0-16.0); Mean Corpuscular HGB Conc 32 g/dL (31-36); Mean Corpuscular Hemoglobin 28 pg (27-31); Mean Corpuscular Volume 87 fL (80-97); Mean Platelet Volume 8.7 fL (7.4-10.4); Platelet Count 347 10^3/uL (150-450); Red Blood Count 2.72 10^6 /uL (3.70-4.87); Red Cell Distribution Width 15 % (10-15); White Blood Count 12.2 10^3/uL (3.5-10.8)
[2020-03-29] MEDS: Heparin 5000 UNITS/ML VIAL(*) 1 ml vial SUBCUT SCH ×3 (05:51→22:10)
[2020-03-29 05:57] LABS: ABS Basophils 0.2 10^3/ul (0-0.2); ABS Eosinophils 0.2 10^3/ul (0-0.6); ABS Lymphocytes 1.3 10^3/ul (1.0-4.8); ABS Monocytes 0.7 10^3/ul (0-0.8); Lymphocyte % 10.7 %
[2020-03-29 06:00] LABS: BUN/Creatinine Ratio 8.2 (8-20); Calcium 6.9 mg/dL (8.6-10.3); EGFR African American 71.1 (>60); EGFR Non-African American 58.8 (>60); Potassium 3.9 mmol/L (3.5-5.0)
[2020-03-29] MEDS: Pantoprazole VIAL 40 MG VIAL IV SCH (07:54)
[2020-03-29] MEDS: Nystatin TOP POWDER 15 GM BTL TOPICAL SCH ×2 (07:54→21:59)
[2020-03-29] MEDS: Furosemide 40 mg/4 ml IV VIAL IV SCH ×2 (11:00→19:10)
[2020-03-29] MEDS: fentaNYL 100 mcg/2 ml 50 MCG/ML VIAL IV PRN ×3 (13:16→22:21)
[2020-03-29] MEDS: Fluconazole 400 MG IVPREMIX(*) 400 MG/200 ML BAG IVPB SCH (13:16)
[2020-03-29] MEDS: Dexmedetomidine 1,000 MCG in NS 0.9% 250 ml 240 ML IV SCH (14:39)
[2020-03-29] MEDS: Diazepam INJ CARPUJECT 5 MG/ML IV PRN ×2 (14:43→22:21)
[2020-03-29] MEDS: [UNRECOGNIZED DRUG - OTHER] TPN SCH (17:13)
[2020-03-29] MEDS: WATER TPN SCH (17:13)
[2020-03-29] MEDS: LIPID EMULSION TPN SCH (17:13)
[2020-03-29] MEDS: DEXTROSE TPN SCH (17:13)
[2020-03-29] MEDS: TPN TPN SCH (17:13)
[2020-03-30] MEDS: Furosemide 40 mg/4 ml IV VIAL IV SCH ×3 (03:00→18:52)
[2020-03-30] MEDS: Chlorhexidine MOUTHWASH 0.12% 15 ML UDC TOPICAL SCH ×6 (03:00→21:58)
[2020-03-30] MEDS: Dexmedetomidine 1,000 MCG in NS 0.9% 250 ml 240 ML IV SCH ×2 (04:34→15:27)
[2020-03-30] MEDS: Heparin 5000 UNITS/ML VIAL(*) 1 ml vial SUBCUT SCH ×3 (05:55→21:58)
[2020-03-30 06:39] LABS: BUN/Creatinine Ratio 8.1 (8-20); Calcium 7.5 mg/dL (8.6-10.3); EGFR African American 69.5 (>60); EGFR Non-African American 57.4 (>60); Magnesium 1.9 mg/dL (1.9-2.7); Phosphorus 4.3 mg/dL (2.5-5.0); Potassium 3.7 mmol/L (3.5-5.0)
[2020-03-30] MEDS: Pantoprazole VIAL 40 MG VIAL IV SCH (07:20)
[2020-03-30] MEDS: Nystatin TOP POWDER 15 GM BTL TOPICAL SCH ×2 (07:22→21:58)
[2020-03-30] MEDS ORDERED: Magnesium Sulfate 2 gm BAG 2 GM/50 ML BAG IVPB ONE (11:54)
[2020-03-30] MEDS: KCL 20 MEQ/100 ML IVPREMIX 20 MEQ/100 ML BAG IV SCH ×2 (12:18→14:14)
[2020-03-30] MEDS: Fluconazole 400 MG IVPREMIX(*) 400 MG/200 ML BAG IVPB SCH (13:32)
[2020-03-30] MEDS: [UNRECOGNIZED DRUG - OTHER] TPN SCH (17:39)
[2020-03-30] MEDS: WATER TPN SCH (17:39)
[2020-03-30] MEDS: LIPID EMULSION TPN SCH (17:39)
[2020-03-30] MEDS: DEXTROSE TPN SCH (17:39)
[2020-03-30] MEDS: TPN TPN SCH (17:39)
[2020-03-31] MEDS: Furosemide 40 mg/4 ml IV VIAL IV SCH ×3 (03:09→19:33)
[2020-03-31] MEDS: Chlorhexidine MOUTHWASH 0.12% 15 ML UDC TOPICAL SCH ×7 (03:09→22:12)
[2020-03-31] MEDS ORDERED: Norepinephrine 16MCG/ML IVPRE 4,000 MCG/250 ML BAG IV SCH (05:00)
[2020-03-31] MEDS: Heparin 5000 UNITS/ML VIAL(*) 1 ml vial SUBCUT SCH ×3 (05:11→22:12)
[2020-03-31] MEDS: Dexmedetomidine 1,000 MCG in NS 0.9% 250 ml 240 ML IV SCH ×2 (05:22→17:47)
[2020-03-31 05:50] LABS: BUN/Creatinine Ratio 8.8 (8-20); Calcium 7.5 mg/dL (8.6-10.3); EGFR African American 67.1 (>60); EGFR Non-African American 55.5 (>60); Magnesium 2.2 mg/dL (1.9-2.7); Potassium 3.6 mmol/L (3.5-5.0)
[2020-03-31] MEDS: Nystatin TOP POWDER 15 GM BTL TOPICAL SCH (07:38)
[2020-03-31] MEDS: Pantoprazole VIAL 40 MG VIAL IV SCH (07:38)
[2020-03-31] MEDS ORDERED: Nystatin TOP POWDER 15 GM BTL TOPICAL PRN (11:13)
[2020-03-31] MEDS: WATER TPN SCH (17:45)
[2020-03-31] MEDS: DEXTROSE TPN SCH (17:45)
[2020-03-31] MEDS: LIPID EMULSION TPN SCH (17:45)
[2020-03-31] MEDS: [UNRECOGNIZED DRUG - OTHER] TPN SCH (17:45)
[2020-03-31] MEDS: TPN TPN SCH (17:45)
[2020-04-01] MEDS: Furosemide 40 mg/4 ml IV VIAL IV SCH ×2 (02:37→11:32)
[2020-04-01] MEDS: Chlorhexidine MOUTHWASH 0.12% 15 ML UDC TOPICAL SCH ×3 (02:37→09:09)
[2020-04-01] MEDS: Heparin 5000 UNITS/ML VIAL(*) 1 ml vial SUBCUT SCH ×2 (05:50→12:26)
[2020-04-01] MEDS: Pantoprazole VIAL 40 MG VIAL IV SCH (09:09)
[2020-04-01] MEDS ORDERED: Lorazepam PYXIS KEY PRN ×2 (10:55→13:17)
[2020-04-01] MEDS ORDERED: Morphine 10 MG/ML VIAL (1 ml) ONE (10:55)
[2020-04-01] MEDS ORDERED: LORazepam 2 mg VIAL 1 ml IV PUSH ONE (10:55)
[2020-04-01] MEDS ORDERED: Lorazepam PYXIS KEY ONE (10:55)
[2020-04-01] MEDS ORDERED: LORazepam 2 mg VIAL 1 ml ONE (10:55)
[2020-04-01] MEDS ORDERED: Morphine 10 MG/ML VIAL (1 ml) IV ONE (11:00)
[2020-04-01 16:54] VITALS: BP 83/44
[2020-04-01] MEDS: Atropine 1% (ORAL/SL) 15 ML BTL SL PRN ×2 (17:55→21:01)
[2020-04-01] MEDS: LORazepam 2 mg VIAL 1 ml IV PUSH PRN (17:55)
[2020-04-02] MEDS: Atropine 1% (ORAL/SL) 15 ML BTL SL PRN ×3 (02:23→20:36)
[2020-04-02] MEDS: LORazepam 2 mg VIAL 1 ml IV PUSH PRN (02:23)
[2020-04-03] MEDS: LORazepam 2 mg VIAL 1 ml IV PUSH PRN ×4 (04:01→15:57)
[2020-04-03] MEDS: Atropine 1% (ORAL/SL) 15 ML BTL SL PRN (08:06)
== END 2020-04-04 10:10 | disposition hospice, home (50) | DRG 388 ==
LOC: ED 10:45 → SSU 15:25 → ICU 17:58 → SSU 03-08 11:46 → ICU 03-17 19:58 → MED 04-01 13:17
PROVIDERS: ADMIT Surgery; ATTEND Internal Medicine